=== PATIENT | female | born 1960 | race American Indian/Alaskan Native ===

== ENCOUNTER 2018-06-05 14:15 | Inpatient (IN) | payer MEDICAID ==
[~2018-06-05] VITALS: Ht 152.4 cm; Wt 63.0 kg
[~2018-06-05 14:15] MED LIST: HYDR-4383 PO; LANTUS SUBCUT
[2018-06-05] MEDS ORDERED: vancomycin/NS 1 GM ADD-VANTAGE 250 ML IV ONE (15:30)
[2018-06-05] MEDS ORDERED: normal saline 1000ML IV soln IVB ONE (15:30)
[2018-06-05] MEDS ORDERED: ondansetron/PF 4mg/2ml inj IV ONE (15:35)
[2018-06-05] MEDS ORDERED: HYDROmorphone 1 mg/ml syringe IM ONE (15:35)
[2018-06-05 15:54] LABS: BASOPHILS # (AUTO) 0.1 X10'3 (0-0.2); BASOPHILS % (AUTO) 0.4 % (0-1); EOSINOPHILS # (AUTO) 0.1 X10'3 (0-0.9); EOSINOPHILS % (AUTO) 0.8 % (0-6); HEMATOCRIT 39.5 % (35.0-45.0); HEMOGLOBIN 13.4 g/dl (12.0-16.0); LYMPHOCYTES % (AUTO) 14.3 % (21-51); MEAN CORPUSCULAR VOLUME 88.4 FL (78-98); MEAN PLATELET VOLUME 8.5 FL (7.4-10.4); MONOCYTES # (AUTO) 0.6 X10'3 (0-0.9); MONOCYTES % (AUTO) 4.5 % (2-12); NEUTROPHILS # (AUTO) 11.4 X10'3 (1.8-7.7); PLATELET COUNT 322 X10'3 (140-440); RED BLOOD COUNT 4.47 X10'6 (4.20-5.60); RED CELL DISTRIBUTION WIDTH 14.3 % (11.5-14.5); WHITE BLOOD COUNT 14.2 X10'3 (4.5-11.0)
[2018-06-05 16:13] LABS: INR 0.9 INR; PARTIAL THROMBOPLASTIN TIME 28 SECONDS (22-32); PROTHROMBIN TIME 9.3 SECONDS (9.0-12.0)
[2018-06-05 16:14] LABS: ALANINE AMINOTRANSFERASE 17 U/L (12-78); ALBUMIN 2.9 G/DL (3.4-5.0); ALBUMIN/GLOBULIN RATIO 0.7 (1.1-1.5); ALKALINE PHOSPHATASE 130 IU/L (46-116); ANION GAP 8 (8-16); ASPARTATE AMINO TRANSFERASE 13 U/L (10-37); BILIRUBIN,TOTAL 0.3 MG/DL (0.1-1.0); BLOOD UREA NITROGEN 18 MG/DL (7-18); BUN/CREATININE RATIO 21.7 (6.6-38.0); CALCIUM 8.6 MG/DL (8.5-10.1); CHLORIDE 96 MMOL/L (99-107); CREATININE 0.83 MG/DL (0.40-0.90); GLUCOSE 389 MG/DL (70-104); MAGNESIUM 1.9 MG/DL (1.5-2.4); POTASSIUM 4.1 MMOL/L (3.5-5.1); SODIUM 130 MMOL/L (135-145); TOTAL CARBON DIOXIDE 26.1 MMOL/L (24-32); TOTAL PROTEIN 7.1 G/DL (6.4-8.2); eGFR 70 ML/MIN
[2018-06-05] MEDS ORDERED: insulin regular, human 10 units/0.1 ml syringe IV ONE (16:40)
[2018-06-05 18:05] LABS: CLARITY,URINE SLIGHTLY CLOUDY (Clear); COLOR,URINE YELLOW (Yellow); GLUCOSE, URINE >=1000 mg/dl (Neg); KETONES,URINE NEGATIVE (Neg); LEUKOCYTE ESTERASE ,URINE NEGATIVE (Neg); NITRITES, URINE NEGATIVE (Neg); OCCULT BLOOD,URINE NEGATIVE (Neg); PH,URINE 5.5 (4.8-8.0); PROTEIN,URINE NEGATIVE (Neg); UROBILINOGEN,URINE 0.2 E.U/dL (0.2-1.0)
[2018-06-05 18:07] LABS: UA COLLECTION TYPE CLN CATCH MIDSTREAM
[2018-06-05 18:10] LABS: URINE HCG NEGATIVE (NEG)
[2018-06-05] MEDS ORDERED: MESSAGE TO PHARMACY PO ONE (18:10)
[2018-06-05] MEDS ORDERED: magnesium 4gm in 100ml NS 100 ML IV PRN (18:10)
[2018-06-05] MEDS ORDERED: magnesium 1gm/100ml D5W IVPB 100 ML IV PRN (18:10)
[2018-06-05] MEDS ORDERED: acetaminophen 325mg tablet PO PRN ×2 (18:10)
[2018-06-05] MEDS ORDERED: dextrose 50%-water 50ml dispensing syringe IV PRN ×2 (18:10)
[2018-06-05] MEDS ORDERED: glucagon, human recombinant 1mg kit SUBCUT PRN (18:10)
[2018-06-05] MEDS ORDERED: dextrose ORAL solution 15 GM/59 ML bottle PO PRN ×2 (18:10)
[2018-06-05] MEDS ORDERED: morphine 2 MG/ML inj. syringe IV PRN (18:10)
[2018-06-05] MEDS ORDERED: potassium Cl 20 mEq SR tablet PO PRN ×2 (18:10)
[2018-06-05] MEDS ORDERED: potassium Cl 40MEQ/NS 500ml 500 ML IV PRN ×2 (18:10)
[2018-06-05] MEDS ORDERED: magnesium Cl slow-release 64mg tablet PO PRN (18:10)
[2018-06-05 18:13] LABS: BACTERIA,URINE 3+ /HPF (Neg); MUCUS STRANDS MODERATE /LPF (Neg); RBC,URINE NONE SEEN /HPF (0-2); SQUAMOUS EPITHELIAL CELL,UR NONE SEEN /LPF (FEW)
[2018-06-05] MEDS: normal saline 1000ml 1,000 ML IV SCH (18:46)
[2018-06-05 19:45] VITALS: BP 132/84
[2018-06-05] MEDS: vancomycin/NS 1 GM ADD-VANTAGE 250 ML IV SCH (20:08)
[2018-06-05] MEDS: heparin, porcine 5000 units/ml vial SQ SCH (20:10)
[2018-06-05] MEDS ORDERED: temazepam 15mg capsule PO PRN (21:00)
[2018-06-05] MEDS: insulin glargine (Lantus) pen - multi-dose SQ SCH (22:11)
[2018-06-06] VITALS: BP 132/84
[2018-06-06 05:34] LABS: BASOPHILS # (AUTO) 0.1 X10'3 (0-0.2); BASOPHILS % (AUTO) 0.7 % (0-1); EOSINOPHILS # (AUTO) 0.2 X10'3 (0-0.9); EOSINOPHILS % (AUTO) 2.6 % (0-6); HEMATOCRIT 32.4 % (35.0-45.0); LYMPHOCYTES % (AUTO) 20.8 % (21-51); MEAN CORPUSCULAR HEMOGLOBIN 30.3 PG (27.0-31.0); MEAN CORPUSCULAR VOLUME 88.9 FL (78-98); MEAN PLATELET VOLUME 9.1 FL (7.4-10.4); MONOCYTES # (AUTO) 0.7 X10'3 (0-0.9); NEUTROPHILS # (AUTO) 6.5 X10'3 (1.8-7.7); NEUTROPHILS % (AUTO) 68.9 % (42-75); PLATELET COUNT 270 X10'3 (140-440); RED BLOOD COUNT 3.64 X10'6 (4.20-5.60); RED CELL DISTRIBUTION WIDTH 14.3 % (11.5-14.5); WHITE BLOOD COUNT 9.4 X10'3 (4.5-11.0)
[2018-06-06] MEDS: normal saline 1000ml 1,000 ML IV SCH ×3 (05:55→19:21)
[2018-06-06 06:00] LABS: ALBUMIN 2.2 G/DL (3.4-5.0); ANION GAP 9 (8-16); BLOOD UREA NITROGEN 16 MG/DL (7-18); BUN/CREATININE RATIO 22.2 (6.6-38.0); CALCIUM 8.1 MG/DL (8.5-10.1); CHLORIDE 100 MMOL/L (99-107); CREATININE 0.72 MG/DL (0.40-0.90); GLUCOSE 253 MG/DL (70-104); MAGNESIUM 1.7 MG/DL (1.5-2.4); POTASSIUM 4.1 MMOL/L (3.5-5.1); SODIUM 133 MMOL/L (135-145); TOTAL CARBON DIOXIDE 24.4 MMOL/L (24-32); eGFR 83 ML/MIN
[2018-06-06 06:50] VITALS: BP 109/63
[2018-06-06] MEDS: heparin, porcine 5000 units/ml vial SQ SCH ×2 (07:28→19:26)
[2018-06-06] MEDS: vancomycin/NS 1 GM ADD-VANTAGE 250 ML IV SCH ×2 (07:29→19:22)
[2018-06-06] MEDS: HYDROcodone/acetaminophen 5mg/325mg tablet PO PRN ×2 (07:45→13:57)
[2018-06-06] MEDS: K and/or MAG REPLACEMENT MC SCH (08:00)
[2018-06-06] MEDS ORDERED: diph,pertuss (acell), tet (DTaP-PEDs)/PF 0.5ml syringe IMVAC ONE (11:35)
[2018-06-06 11:44] VITALS: BP 116/69
[2018-06-06] MEDS ORDERED: TETanus/Pertussis (Acell)/Diphther VAC/PF (Tdap-Adult) 0.5ml syringe IMVAC ONE (12:15)
[2018-06-06] MEDS: insulin Lispro (HumaLOG) vial - multi-dose SQ SCH ×2 (13:00→18:41)
[2018-06-06] MEDS: ondansetron/PF 4mg/2ml inj IV PRN (16:52)
[2018-06-06 20:00] VITALS: BP 151/74
[2018-06-06] MEDS: insulin glargine (Lantus) pen - multi-dose SQ SCH (21:33)
[2018-06-07] VITALS: BP 127/71
[2018-06-07] MEDS: HYDROcodone/acetaminophen 5mg/325mg tablet PO PRN ×3 (00:29→13:05)
[2018-06-07] MEDS: ondansetron/PF 4mg/2ml inj IV PRN (03:15)
[2018-06-07] MEDS ORDERED: VANCOMYCIN LEVEL IV ONE (06:30)
[2018-06-07] MEDS: heparin, porcine 5000 units/ml vial SQ SCH ×2 (07:22→19:27)
[2018-06-07] MEDS: vancomycin/NS 1 GM ADD-VANTAGE 250 ML IV SCH (07:23)
[2018-06-07 07:27] VITALS: BP 114/63
[2018-06-07] MEDS: normal saline 1000ml 1,000 ML IV SCH ×2 (07:35→22:54)
[2018-06-07 07:36] LABS: BASOPHILS # (AUTO) 0.1 X10'3 (0-0.2); BASOPHILS % (AUTO) 1.9 % (0-1); EOSINOPHILS # (AUTO) 0.3 X10'3 (0-0.9); EOSINOPHILS % (AUTO) 4.3 % (0-6); LYMPHOCYTES # (AUTO) 1.9 X10'3 (1.1-4.8); MEAN CORPUSCULAR HGB CONC 33.4 % (33.0-36.5); MEAN CORPUSCULAR VOLUME 89.7 FL (78-98); MEAN PLATELET VOLUME 9.1 FL (7.4-10.4); MONOCYTES # (AUTO) 0.5 X10'3 (0-0.9); MONOCYTES % (AUTO) 6.5 % (2-12); NEUTROPHILS # (AUTO) 4.8 X10'3 (1.8-7.7); NEUTROPHILS % (AUTO) 62.3 % (42-75); PLATELET COUNT 292 X10'3 (140-440); RED BLOOD COUNT 3.68 X10'6 (4.20-5.60); RED CELL DISTRIBUTION WIDTH 14.2 % (11.5-14.5); WHITE BLOOD COUNT 7.7 X10'3 (4.5-11.0)
[2018-06-07 07:51] LABS: ALBUMIN 2.2 G/DL (3.4-5.0); ANION GAP 7 (8-16); BLOOD UREA NITROGEN 13 MG/DL (7-18); BUN/CREATININE RATIO 17.8 (6.6-38.0); CALCIUM 8.3 MG/DL (8.5-10.1); CHLORIDE 102 MMOL/L (99-107); CREATININE 0.73 MG/DL (0.40-0.90); GLUCOSE 191 MG/DL (70-104); MAGNESIUM 1.7 MG/DL (1.5-2.4); POTASSIUM 3.6 MMOL/L (3.5-5.1); SODIUM 137 MMOL/L (135-145); TOTAL CARBON DIOXIDE 27.9 MMOL/L (24-32); VANCOMYCIN,TROUGH 10.6 UG/ML (6.0-14.0); eGFR 81 ML/MIN
[2018-06-07] MEDS: K and/or MAG REPLACEMENT MC SCH (08:00)
[2018-06-07] MEDS: lactobacillus rhamnosus 10,000 MMU CELLS/CAPSULE PO SCH ×2 (08:22→19:26)
[2018-06-07] MEDS: insulin Lispro (HumaLOG) vial - multi-dose SQ SCH ×3 (08:25→19:25)
[2018-06-07 11:45] VITALS: BP 102/62
[2018-06-07] MEDS ORDERED: nicotine 14mg patch - 24hr TD ONE (16:55)
[2018-06-07 19:00] VITALS: BP 129/74
[2018-06-07] MEDS: vancomycin inj 1,250 MG in normal saline 250ml IV soln 250 ML IV SCH (19:18)
[2018-06-07] MEDS ORDERED: dextrose 5%-normal saline 1,000 ML IV SCH (23:25)
[2018-06-07] MEDS ORDERED: dextrose 50%-water 50ml dispensing syringe IV ONE (23:25)
[2018-06-07] MEDS ORDERED: dextrose 5%-normal saline 1,000 ML IV PRN (23:35)
[2018-06-08] VITALS: BP 133/64
[2018-06-08] MEDS: HYDROcodone/acetaminophen 5mg/325mg tablet PO PRN (02:05)
[2018-06-08 05:17] LABS: BASOPHILS # (AUTO) 0.1 X10'3 (0-0.2); BASOPHILS % (AUTO) 1.2 % (0-1); EOSINOPHILS # (AUTO) 0.2 X10'3 (0-0.9); EOSINOPHILS % (AUTO) 1.7 % (0-6); HEMATOCRIT 34.1 % (35.0-45.0); HEMOGLOBIN 11.6 g/dl (12.0-16.0); LYMPHOCYTES # (AUTO) 2.2 X10'3 (1.1-4.8); LYMPHOCYTES % (AUTO) 24.7 % (21-51); MEAN CORPUSCULAR HEMOGLOBIN 30.2 PG (27.0-31.0); MEAN CORPUSCULAR HGB CONC 33.9 % (33.0-36.5); MEAN PLATELET VOLUME 9.4 FL (7.4-10.4); MONOCYTES # (AUTO) 0.4 X10'3 (0-0.9); MONOCYTES % (AUTO) 4.5 % (2-12); NEUTROPHILS # (AUTO) 6.1 X10'3 (1.8-7.7); NEUTROPHILS % (AUTO) 67.9 % (42-75); PLATELET COUNT 319 X10'3 (140-440); RED BLOOD COUNT 3.83 X10'6 (4.20-5.60); RED CELL DISTRIBUTION WIDTH 14.4 % (11.5-14.5)
[2018-06-08 05:26] LABS: ALBUMIN 2.3 G/DL (3.4-5.0); ANION GAP 8 (8-16); BLOOD UREA NITROGEN 12 MG/DL (7-18); CALCIUM 8.4 MG/DL (8.5-10.1); CHLORIDE 100 MMOL/L (99-107); GLUCOSE 195 MG/DL (70-104); MAGNESIUM 1.8 MG/DL (1.5-2.4); POTASSIUM 3.6 MMOL/L (3.5-5.1); SODIUM 135 MMOL/L (135-145); TOTAL CARBON DIOXIDE 27.5 MMOL/L (24-32); eGFR > 90 ML/MIN
[2018-06-08 07:00] VITALS: BP 134/68
[2018-06-08] MEDS: normal saline 1000ml 1,000 ML IV SCH (07:10)
[2018-06-08] MEDS: vancomycin inj 1,250 MG in normal saline 250ml IV soln 250 ML IV SCH (07:17)
[2018-06-08] MEDS: lactobacillus rhamnosus 10,000 MMU CELLS/CAPSULE PO SCH (07:17)
[2018-06-08] MEDS: heparin, porcine 5000 units/ml vial SQ SCH (07:17)
[2018-06-08] MEDS: K and/or MAG REPLACEMENT MC SCH (08:00)
[2018-06-08] MEDS ORDERED: nicotine 14mg patch - 24hr TD SCH (08:00)
[2018-06-08 11:00] VITALS: BP 144/57
[2018-06-08] MEDS ORDERED: SULF1TAB49 PO (11:43)
[2018-06-08] MEDS ORDERED: NICO-631 TD (11:43)
[2018-06-08] MEDS: insulin Lispro (HumaLOG) vial - multi-dose SQ SCH (13:14)
[2018-06-09] MEDS ORDERED: VANCOMYCIN LEVEL IV ONE (06:30)
== END 2018-06-08 14:10 | disposition home or self-care (01) | DRG 383 ==
LOC: ER 14:16 → ED HOLD 18:10 → EDBEDREQ 18:58 → SUR 3N 19:40
PROVIDERS: ADMIT Internal Medicine; ATTEND Family Medicine
DX: L03.115 Cellulitis of right lower limb (principal); E11.40 Type 2 diabetes mellitus with diabetic neuropathy, unspecified; E11.65 Type 2 diabetes mellitus with hyperglycemia; E87.1 Hypo-osmolality and hyponatremia; F12.90 Cannabis use, unspecified, uncomplicated; F17.200 Nicotine dependence, unspecified, uncomplicated; B95.62 Methicillin resistant Staphylococcus aureus infection as the cause of diseases classified elsewhere; Z79.899 Other long term (current) drug therapy; Z88.6 Allergy status to analgesic agent; Z91.041 Radiographic dye allergy status; Z90.49 Acquired absence of other specified parts of digestive tract; Z79.4 Long term (current) use of insulin; Z98.51 Tubal ligation status
CPT/HCPCS: 36415; 71045; 73630; 80048; 80053; 80202; 81001; 81025; 82948; 83036; 83605; 83735; 84145; 85025; 85610; 85730; 87040; 87070; 87077; 87088; 87186; 90715; 93005; 96365; 96372; 96375; 97110; 97116; 97162; 97530; 99285; G0378; J1170; J1644; J1815; J2405; J3370; J7030; J7042

== ENCOUNTER 2018-11-02 13:34 | Emergency (ER) | payer MEDICAID ==
[~2018-11-02] VITALS: Ht 152.4 cm; Wt 63.0 kg
[~2018-11-02 13:34] MED LIST changes: -HYDR-4383 PO; +NICO-631 TD
[2018-11-02] MEDS ORDERED: cephalexin 500mg capsule PO ONE (14:00)
[2018-11-02] MEDS ORDERED: doxycycline inj 100 MG in normal saline 100ml IV soln 100 ML IV ONE (14:00)
[2018-11-02] MEDS ORDERED: ondansetron/PF 4mg/2ml inj IV ONE (14:00)
[2018-11-02] MEDS ORDERED: normal saline 1000ML IV soln IV ONE (14:00)
--- NOTE | 2018-11-02 14:15 | NUR ---
XRAY AT BEDSIDE. NS INFUSING.
[2018-11-02 14:34] LABS: BASOPHILS # (AUTO) 0.1 X10'3 (0-0.2); BASOPHILS % (AUTO) 0.6 % (0-1); EOSINOPHILS # (AUTO) 0.1 X10'3 (0-0.9); EOSINOPHILS % (AUTO) 0.3 % (0-6); HEMATOCRIT 42.5 % (35.0-45.0); HEMOGLOBIN 14.5 g/dl (12.0-16.0); LYMPHOCYTES % (AUTO) 6.4 % (21-51); MEAN CORPUSCULAR HEMOGLOBIN 29.9 PG (27.0-31.0); MEAN CORPUSCULAR VOLUME 87.8 FL (78-98); MEAN PLATELET VOLUME 9.3 FL (7.4-10.4); MONOCYTES # (AUTO) 1.1 X10'3 (0-0.9); MONOCYTES % (AUTO) 6.7 % (2-12); NEUTROPHILS # (AUTO) 14.1 X10'3 (1.8-7.7); PLATELET COUNT 311 X10'3 (140-440); RED BLOOD COUNT 4.84 X10'6 (4.20-5.60); WHITE BLOOD COUNT 16.3 X10'3 (4.5-11.0)
[2018-11-02 14:40] LABS: PARTIAL THROMBOPLASTIN TIME 29 SECONDS (22-32); PROTHROMBIN TIME 9.7 SECONDS (9.0-12.0)
[2018-11-02 14:42] LABS: ALANINE AMINOTRANSFERASE 28 U/L (12-78); ALBUMIN 3.2 G/DL (3.4-5.0); ALBUMIN/GLOBULIN RATIO 0.7 (1.1-1.5); ALKALINE PHOSPHATASE 143 IU/L (46-116); ANION GAP 13 (8-16); ASPARTATE AMINO TRANSFERASE 19 U/L (10-37); BILIRUBIN,TOTAL 0.4 MG/DL (0.1-1.0); BLOOD UREA NITROGEN 20 MG/DL (7-18); CALCIUM 9.5 MG/DL (8.5-10.1); CHLORIDE 94 MMOL/L (99-107); CREATININE 0.91 MG/DL (0.40-0.90); GLUCOSE 354 MG/DL (70-104); MAGNESIUM 2.1 MG/DL (1.5-2.4); POTASSIUM 4.1 MMOL/L (3.5-5.1); SODIUM 130 MMOL/L (135-145); TOTAL CARBON DIOXIDE 23.5 MMOL/L (24-32); TOTAL PROTEIN 8.1 G/DL (6.4-8.2); eGFR 63 ML/MIN
[2018-11-02 15:10] LABS: PLATELET ESTIMATE NORMAL; TOTAL CELLS COUNTED 100
[2018-11-02] MEDS ORDERED: CEPH250T PO (15:43)
[2018-11-02] MEDS ORDERED: DOXY100C43 PO (15:43)
[2018-11-02] MEDS ORDERED: ONDA8TAB6 PO (15:45)
[2018-11-02] MEDS ORDERED: HYDROcodone/acetaminophen 5mg/325mg tablet PO ONE (15:45)
[2018-11-02] MEDS ORDERED: bacitracin 15gm ointment TP ONE (15:50)
[2018-11-02 17:22] VITALS: BP 120/69
== END 2018-11-02 17:23 | disposition home or self-care (01) ==
LOC: ER 13:34
DX: L03.115 Cellulitis of right lower limb (principal); E11.9 Type 2 diabetes mellitus without complications; F12.90 Cannabis use, unspecified, uncomplicated; F15.90 Other stimulant use, unspecified, uncomplicated; Z98.890 Other specified postprocedural states; Z98.51 Tubal ligation status; Z88.6 Allergy status to analgesic agent; Z88.8 Allergy status to other drugs, medicaments and biological substances; Z79.4 Long term (current) use of insulin; Z79.899 Other long term (current) drug therapy
CPT/HCPCS: 36415; 71045; 73630; 80053; 82948; 83605; 83735; 84145; 85025; 85610; 85730; 87040; 93005; 96365; 96366; 96375; 99284; J2405; J7030; J3490

== ENCOUNTER 2018-11-13 11:45 | Inpatient (IN) | payer MEDICAID ==
[~2018-11-13] VITALS: Ht 152.4 cm; Wt 61.4 kg
[~2018-11-13 11:45] MED LIST changes: +CEPH250T PO; +DOXY100C43 PO; +ONDA8TAB6 PO
[2018-11-13 12:36] LABS: EOSINOPHILS # (AUTO) 0.1 X10'3 (0-0.9); HEMOGLOBIN 11.5 g/dl (12.0-16.0); LYMPHOCYTES % (AUTO) 10.7 % (21-51)
[2018-11-13 12:38] LABS: BASOPHILS # (AUTO) 0.1 X10'3 (0-0.2); BASOPHILS % (AUTO) 0.7 % (0-1); EOSINOPHILS % (AUTO) 0.6 % (0-6); HEMATOCRIT 34.3 % (35.0-45.0); LYMPHOCYTES # (AUTO) 2.1 X10'3 (1.1-4.8); MEAN CORPUSCULAR HEMOGLOBIN 29.2 PG (27.0-31.0); MEAN CORPUSCULAR HGB CONC 33.4 g/dL (33.0-36.5); MEAN CORPUSCULAR VOLUME 87.3 FL (78-98); MEAN PLATELET VOLUME 8.1 FL (7.4-10.4); MONOCYTES # (AUTO) 1.1 X10'3 (0-0.9); MONOCYTES % (AUTO) 5.5 % (2-12); NEUTROPHILS # (AUTO) 16.3 X10'3 (1.8-7.7); NEUTROPHILS % (AUTO) 82.5 % (42-75); PLATELET COUNT 641 X10'3 (140-440); RED BLOOD COUNT 3.93 X10'6 (4.20-5.60); RED CELL DISTRIBUTION WIDTH 14.2 % (11.5-14.5); WHITE BLOOD COUNT 19.7 X10'3 (4.5-11.0)
[2018-11-13] MEDS ORDERED: piperacillin/tazo 3.375gm/50ml 50 ML IV STA (12:50)
[2018-11-13] MEDS ORDERED: normal saline 1000ml 1,000 ML IV ONE (12:50)
[2018-11-13 12:55] LABS: ALANINE AMINOTRANSFERASE 22 U/L (12-78); ALBUMIN 2.4 G/DL (3.4-5.0); ALBUMIN/GLOBULIN RATIO 0.4 (1.1-1.5); ALKALINE PHOSPHATASE 161 IU/L (46-116); ANION GAP 6 (8-16); ASPARTATE AMINO TRANSFERASE 12 U/L (10-37); BILIRUBIN,TOTAL 0.4 MG/DL (0.1-1.0); BLOOD UREA NITROGEN 23 MG/DL (7-18); BUN/CREATININE RATIO 26.4 (6.6-38.0); CALCIUM 9.3 MG/DL (8.5-10.1); CHLORIDE 94 MMOL/L (99-107); CREATININE 0.87 MG/DL (0.40-0.90); GLUCOSE 406 MG/DL (70-104); SODIUM 127 MMOL/L (135-145); TOTAL CARBON DIOXIDE 26.6 MMOL/L (24-32); TOTAL PROTEIN 7.8 G/DL (6.4-8.2); eGFR 66 ML/MIN
[2018-11-13 12:56] LABS: TOTAL CELLS COUNTED 100
[2018-11-13 12:57] LABS: ANISOCYTOSIS 1+; PLATELET ESTIMATE INCREASED
[2018-11-13 13:02] LABS: CLARITY,URINE CLEAR (Clear); COLOR,URINE YELLOW (Yellow); GLUCOSE, URINE >=1000 mg/dl (Neg); KETONES,URINE NEGATIVE (Neg); LEUKOCYTE ESTERASE ,URINE NEGATIVE (Neg); NITRITES, URINE NEGATIVE (Neg); OCCULT BLOOD,URINE TRACE-INTACT (Neg); PROTEIN,URINE NEGATIVE (Neg); UROBILINOGEN,URINE 0.2 E.U/dL (0.2-1.0)
[2018-11-13 13:03] LABS: UA COLLECTION TYPE CLN CATCH MIDSTREAM
[2018-11-13 13:07] LABS: C-REACTIVE PROTEIN 27.48 MG/DL (0.0-0.5)
[2018-11-13 13:09] LABS: BACTERIA,URINE FEW /HPF (Neg); MUCUS STRANDS NONE SEEN /LPF (Neg); RBC,URINE 0-2 /HPF (0-2); SQUAMOUS EPITHELIAL CELL,UR MODERATE /LPF (FEW); WBC,URINE 0-4 /HPF (0-4)
[2018-11-13] MEDS ORDERED: vancomycin/NS 1 GM ADD-VANTAGE 250 ML IV ONE (13:30)
[2018-11-13] MEDS ORDERED: acetaminophen 325mg tablet PO PRN ×2 (13:40)
[2018-11-13] MEDS ORDERED: magnesium 2GM in 50ml NS 50 ML IV PRN (13:40)
[2018-11-13] MEDS ORDERED: magnesium Cl slow-release 64mg tablet PO PRN (13:40)
[2018-11-13] MEDS ORDERED: potassium Cl 20 mEq SR tablet PO PRN ×2 (13:40)
[2018-11-13] MEDS ORDERED: potassium Cl 40MEQ/NS 500ml 500 ML IV PRN ×2 (13:40)
[2018-11-13] MEDS ORDERED: HYDROcodone/acetaminophen 5mg/325mg tablet PO PRN (13:40)
[2018-11-13] MEDS ORDERED: morphine 2 MG/ML inj. syringe IV PRN (13:40)
[2018-11-13] MEDS ORDERED: mag hydrox/Alum hydrox/simeth 30ml oral suspension PO PRN (13:40)
[2018-11-13] MEDS ORDERED: magnesium 4gm in 100ml NS 100 ML IV PRN (13:40)
[2018-11-13] MEDS ORDERED: INSU100I31 SQ (13:58)
[2018-11-13] MEDS ORDERED: DOXY-257 PO (13:58)
[2018-11-13] MEDS ORDERED: CEPH250C PO (13:58)
[2018-11-13] MEDS: normal saline 1000ml 1,000 ML IV SCH ×2 (14:17→23:43)
[2018-11-13] MEDS: ondansetron/PF 4mg/2ml inj IV PRN (14:50)
[2018-11-13] MEDS ORDERED: MESSAGE TO PHARMACY PO ONE (15:15)
[2018-11-13] MEDS ORDERED: glucagon, human recombinant 1mg kit SUBCUT PRN (15:15)
[2018-11-13] MEDS ORDERED: dextrose 50%-water 50ml dispensing syringe IV PRN ×2 (15:15)
[2018-11-13] MEDS ORDERED: dextrose ORAL solution 15 GM/59 ML bottle PO PRN ×2 (15:15)
[2018-11-13 16:00] VITALS: BP 115/69
--- NOTE | 2018-11-13 16:00 | NUR ---
Patient in room ORTHO 4007. I have received report from ALAN ESTRADA and had the opportunity to ask questions and assume patient care.
[2018-11-13 18:00] VITALS: BP 120/70
--- NOTE | 2018-11-13 18:45 | NUR ---
Problems reprioritized. Patient report given, questions answered & plan of care reviewed with VALENTINA ESTRADA.
--- NOTE | 2018-11-13 19:00 | NUR ---
Patient in room ORTHO 4007. I have received report from Mily Lambert RN and had the opportunity to ask questions and assume patient care.
[2018-11-13] MEDS: heparin, porcine 5000 units/ml vial SQ SCH (19:44)
[2018-11-13] MEDS: HYDROcodone/acetaminophen 10/325mg tab PO PRN (19:44)
[2018-11-13] MEDS: insulin Lispro (HumaLOG) vial - multi-dose SQ SCH ×2 (19:46→22:44)
[2018-11-13] MEDS ORDERED: pneumococcal 23-VAL P-sac vacc 25 mcg/0.5ml vial IMVAC ONE (20:30)
[2018-11-13] MEDS ORDERED: temazepam 15mg capsule PO PRN (21:00)
[2018-11-13 22:00] VITALS: BP 113/68
[2018-11-13] MEDS: insulin glargine (Lantus) pen - multi-dose SQ SCH (22:45)
[2018-11-13] MEDS: piperacillin/tazo 3.375gm/50ml 50 ML IV SCH (22:46)
[2018-11-13] MEDS: morphine 2 MG/ML inj. syringe IV PRN (22:56)
[2018-11-14] VITALS (19 sets, daily range): BP systolic 79–138; BP diastolic 49–80
[2018-11-14] MEDS: HYDROcodone/acetaminophen 10/325mg tab PO PRN ×5 (01:07→23:12)
[2018-11-14] MEDS: vancomycin/NS 1 GM ADD-VANTAGE 250 ML IV SCH ×2 (02:09→16:00)
[2018-11-14] MEDS: piperacillin/tazo 3.375gm/50ml 50 ML IV SCH ×3 (05:29→21:00)
--- NOTE | 2018-11-14 06:41 | NUR ---
Patient in room ORTHO 4007. I have received report from Darryl ESTRADA and had the opportunity to ask questions and assume patient care.
[2018-11-14] MEDS: pantoprazole 40mg Tablet.DR PO SCH (07:32)
[2018-11-14] MEDS: nicotine 14mg patch - 24hr TD SCH (08:00)
[2018-11-14] MEDS: K and/or MAG REPLACEMENT MC SCH (08:00)
[2018-11-14] MEDS: heparin, porcine 5000 units/ml vial SQ SCH ×2 (08:00→21:01)
[2018-11-14 08:02] LABS: BASOPHILS # (AUTO) 0.2 X10'3 (0-0.2); BASOPHILS % (AUTO) 1.2 % (0-1); EOSINOPHILS # (AUTO) 0.1 X10'3 (0-0.9); HEMOGLOBIN 10.5 g/dl (12.0-16.0); LYMPHOCYTES # (AUTO) 1.6 X10'3 (1.1-4.8); LYMPHOCYTES % (AUTO) 12.6 % (21-51); MEAN CORPUSCULAR HEMOGLOBIN 29.2 PG (27.0-31.0); MEAN CORPUSCULAR HGB CONC 33.7 g/dL (33.0-36.5); MEAN CORPUSCULAR VOLUME 86.6 FL (78-98); MEAN PLATELET VOLUME 8.1 FL (7.4-10.4); MONOCYTES % (AUTO) 7.5 % (2-12); NEUTROPHILS # (AUTO) 10.1 X10'3 (1.8-7.7); NEUTROPHILS % (AUTO) 77.7 % (42-75); PLATELET COUNT 599 X10'3 (140-440); RED BLOOD COUNT 3.58 X10'6 (4.20-5.60); RED CELL DISTRIBUTION WIDTH 14.1 % (11.5-14.5)
[2018-11-14 08:15] LABS: ALANINE AMINOTRANSFERASE 105 U/L (12-78); ALBUMIN/GLOBULIN RATIO 0.4 (1.1-1.5); ALKALINE PHOSPHATASE 338 IU/L (46-116); ANION GAP 8 (8-16); ASPARTATE AMINO TRANSFERASE 106 U/L (10-37); BILIRUBIN,TOTAL 0.3 MG/DL (0.1-1.0); BLOOD UREA NITROGEN 17 MG/DL (7-18); BUN/CREATININE RATIO 27.9 (6.6-38.0); CALCIUM 8.5 MG/DL (8.5-10.1); CHLORIDE 100 MMOL/L (99-107); CREATININE 0.61 MG/DL (0.40-0.90); GLUCOSE 165 MG/DL (70-104); MAGNESIUM 1.9 MG/DL (1.5-2.4); POTASSIUM 4.2 MMOL/L (3.5-5.1); SODIUM 133 MMOL/L (135-145); TOTAL CARBON DIOXIDE 25.4 MMOL/L (24-32); TOTAL PROTEIN 6.7 G/DL (6.4-8.2); eGFR > 90 ML/MIN
[2018-11-14] MEDS: insulin Lispro (HumaLOG) vial - multi-dose SQ SCH (08:32)
[2018-11-14] MEDS ORDERED: ringers solution, lacted 1,000 ML IV SCH (09:39)
[2018-11-14] MEDS ORDERED: ondansetron/PF 4mg/2ml inj IV PRN (09:40)
[2018-11-14] MEDS ORDERED: fentaNYL/PF 50MCG/1 ML 2ML syringe IV PRN ×2 (09:40)
[2018-11-14] MEDS ORDERED: hydrALAZINE 20mg/ml inj. IV PRN (09:40)
[2018-11-14] MEDS ORDERED: labetalol 20mg/4ml (5mg/ml) syringe IV PRN (09:40)
[2018-11-14] MEDS ORDERED: morphine 4 MG/ML inj SYRINge IV PRN ×2 (09:40)
--- NOTE | 2018-11-14 10:48 | NUR ---
DM consult: Pt with A1c 12.0. Pt previously admitted and given written and verbal DM ed with referral to outpatient DM class and RD contact information on 06/06/18 with A1c 10.1. Pt currently in surgery holding room pending rt foot amputation, pt will need f/u DM ed and protein education s/p surgery once alert and oriented. Per H&P pt takes insulin however does not see a PCP or follow a DM diet and pt reports being aware of her DM not being under control. Pt previously on a CHO controlled diet with documented PO intake 100% however now NPO for surgery, LBM 11/13. Will continue to follow. Recommendations: 1) Advance to CHO controlled diet as medically indicated 2) Monitor need for ONS/additional protein with diet advancement post-op 3) DM and protein ed prior to d/c 4) Wt per rx Addendum: 11/14/18 at [address] Amended: Links added.
[2018-11-14] MEDS ORDERED: sevoflurane 250ml liquid IH ONE (10:55)
[2018-11-14] MEDS ORDERED: fentaNYL /PF 50mcg/ml 5ml ampule ONE (11:00)
[2018-11-14] MEDS ORDERED: midazolam 2 mg/2 ml injection ONE (11:00)
--- NOTE | 2018-11-14 11:58 | NUR ---
Received from OR via , accompanied by Anesthesiologist DR HUMMEL and report given by Anesthesiolgist. PT IS SLEEPING WITH ORAL AIRWAY IN PLACE, VSS, NOT RESPONDING TO VOICE OR MOVING EXT AT THIS TIME, RIGHT FOOT CD WITH XEROFORM, KERLIS, AND CATY, PIV RIGHT AC 20G WITH LR 100ML/HR, SCD ON LEFT, ACCUCHECK 101.
--- NOTE | 2018-11-14 12:12 | NUR ---
PT WOKE UP AND ORAL AIRWAY REMOVED, MOVING EXT X 4, NO C/O PAIN.
--- NOTE | 2018-11-14 12:40 | NUR ---
Report called to receiving nurse. Transferred via BED Belongings . Special Issues communicated to receiving nurse MARTI STUDENT NURSE. PT IS AWAKE, ALERT, MOVES EXT X 4, REPOSITIONS SELF INDEP'LY IN BED, SKIN WARM AND DRY, DRESSING ON RIGHT LE CD, PIV PATENT, VSS, MEETS CRITERIA FOR DISCHARGE.
[2018-11-14] MEDS: morphine 2 MG/ML inj. syringe IV PRN ×2 (13:10→21:04)
[2018-11-14] MEDS: ondansetron/PF 4mg/2ml inj IV PRN ×2 (13:18→19:04)
[2018-11-14] MEDS ORDERED: metoclopramide 10mg tablet PO PRN (14:55)
--- NOTE | 2018-11-14 15:30 | NUR ---
Dr. Guzman called increase morphine and norco to q3 hrs instead of q4 same dose
[2018-11-14] MEDS ORDERED: morphine 2 MG/ML inj. syringe IV PRN (15:35)
[2018-11-14] MEDS ORDERED: HYDROcodone/acetaminophen 5mg/325mg tablet PO PRN (15:35)
[2018-11-14] MEDS: normal saline 1000ml 1,000 ML IV SCH ×2 (16:00→19:37)
--- NOTE | 2018-11-14 19:09 | NUR ---
Patient report given to Darryl
[2018-11-14] MEDS: lactobacillus rhamnosus 10,000 MMU CELLS/CAPSULE PO SCH (20:00)
[2018-11-14] MEDS: insulin glargine (Lantus) pen - multi-dose SQ SCH (20:58)
--- NOTE | 2018-11-14 21:00 | NUR ---
Pt is still nauseated after Zofran, called Dr. Box and got an order for IV compazine. nausea seemed to subside afterward.
[2018-11-14] MEDS: proCHLORperazine 10 MG/2 ml inj IV PRN (21:09)
[2018-11-15] MEDS: morphine 2 MG/ML inj. syringe IV PRN ×6 (00:20→22:12)
[2018-11-15] MEDS ORDERED: HYDROcodone/acetaminophen 10/325mg tab PO ONE (00:45)
--- NOTE | 2018-11-15 01:00 | NUR ---
pt c/o pain After morphine and norco was given. called Dr. Box and received an order for an extra Ribera 10.
[2018-11-15] MEDS ORDERED: VANCOMYCIN LEVEL IV ONE (01:30)
--- NOTE | 2018-11-15 01:31 | NUR ---
Patient in room ORTHO 4007. I have received report from Renee ESTRADA and had the opportunity to ask questions and assume patient care. Addendum: 11/15/18 at 0140 by Benjamin Jackson RN Received report at 0590 on 11/14
[2018-11-15 02:00] VITALS: BP 122/66
[2018-11-15] MEDS: vancomycin/NS 1 GM ADD-VANTAGE 250 ML IV SCH (02:33)
[2018-11-15 02:51] LABS: ALANINE AMINOTRANSFERASE 107 U/L (12-78); ALBUMIN 1.8 G/DL (3.4-5.0); ALBUMIN/GLOBULIN RATIO 0.4 (1.1-1.5); ALKALINE PHOSPHATASE 302 IU/L (46-116); ANION GAP 7 (8-16); ASPARTATE AMINO TRANSFERASE 80 U/L (10-37); BILIRUBIN,TOTAL 0.2 MG/DL (0.1-1.0); BLOOD UREA NITROGEN 10 MG/DL (7-18); BUN/CREATININE RATIO 14.7 (6.6-38.0); CALCIUM 8.3 MG/DL (8.5-10.1); CHLORIDE 100 MMOL/L (99-107); CREATININE 0.68 MG/DL (0.40-0.90); EOSINOPHILS # (AUTO) 0.1 X10'3 (0-0.9); GLUCOSE 260 MG/DL (70-104); HEMOGLOBIN 9.9 g/dl (12.0-16.0); LYMPHOCYTES # (AUTO) 1.8 X10'3 (1.1-4.8); MAGNESIUM 1.9 MG/DL (1.5-2.4); POTASSIUM 3.8 MMOL/L (3.5-5.1); RED CELL DISTRIBUTION WIDTH 14.1 % (11.5-14.5); SODIUM 135 MMOL/L (135-145); TOTAL CARBON DIOXIDE 27.7 MMOL/L (24-32); TOTAL PROTEIN 6.3 G/DL (6.4-8.2); eGFR 88 ML/MIN
[2018-11-15 02:53] LABS: BASOPHILS # (AUTO) 0.1 X10'3 (0-0.2); BASOPHILS % (AUTO) 0.9 % (0-1); EOSINOPHILS % (AUTO) 0.7 % (0-6); HEMATOCRIT 29.6 % (35.0-45.0); LYMPHOCYTES % (AUTO) 11.4 % (21-51); MEAN CORPUSCULAR HEMOGLOBIN 28.9 PG (27.0-31.0); MEAN CORPUSCULAR HGB CONC 33.4 g/dL (33.0-36.5); MEAN CORPUSCULAR VOLUME 86.6 FL (78-98); MEAN PLATELET VOLUME 8.3 FL (7.4-10.4); MONOCYTES % (AUTO) 6.1 % (2-12); NEUTROPHILS # (AUTO) 13.1 X10'3 (1.8-7.7); NEUTROPHILS % (AUTO) 80.9 % (42-75); PLATELET COUNT 609 X10'3 (140-440); RED BLOOD COUNT 3.42 X10'6 (4.20-5.60); WHITE BLOOD COUNT 16.2 X10'3 (4.5-11.0)
[2018-11-15] MEDS: piperacillin/tazo 3.375gm/50ml 50 ML IV SCH ×3 (05:07→21:50)
[2018-11-15 06:00] VITALS: BP 92/60
--- NOTE | 2018-11-15 06:09 | NUR ---
received report from gino decker
[2018-11-15 06:16] LABS: TOTAL CELLS COUNTED 100
[2018-11-15 06:17] LABS: PLATELET ESTIMATE INCREASED
[2018-11-15 06:59] LABS: VANCOMYCIN,TROUGH 6.8 UG/ML (6.0-14.0)
[2018-11-15] MEDS: nicotine 14mg patch - 24hr TD SCH (08:00)
[2018-11-15] MEDS: K and/or MAG REPLACEMENT MC SCH (08:00)
[2018-11-15] MEDS: pantoprazole 40mg Tablet.DR PO SCH (08:05)
[2018-11-15] MEDS: lactobacillus rhamnosus 10,000 MMU CELLS/CAPSULE PO SCH ×2 (08:05→21:50)
[2018-11-15] MEDS: HYDROcodone/acetaminophen 10/325mg tab PO PRN ×3 (08:06→15:14)
[2018-11-15] MEDS: heparin, porcine 5000 units/ml vial SQ SCH ×2 (08:08→21:50)
[2018-11-15] MEDS: normal saline 1000ml 1,000 ML IV SCH ×3 (08:10→16:41)
[2018-11-15] MEDS: insulin Lispro (HumaLOG) vial - multi-dose SQ SCH ×3 (08:50→18:51)
[2018-11-15 10:00] VITALS: BP 95/66
[2018-11-15] MEDS: proCHLORperazine 10 MG/2 ml inj IV PRN (10:40)
--- NOTE | 2018-11-15 12:38 | NUR ---
unable to scan zosyn into [employer], checked med w/charge nurse and called pharmacy to notify them, continue to monitor
--- NOTE | 2018-11-15 13:03 | NUR ---
F/U for DM consult: Pt seen at bedside states she doesn't see an MD or check BG levels d/t not having a glucometer however states she takes her insulin per rx. services account manager has been consulted d/t pt needing resources for DM management. Pt given thorough written and verbal protein and DM ed with encouragement to attend outpatient DM course with CDEs. RD contact information provided. Pt endorses a good appetite which is evident with documented 100% PO intake on CHO controlled diet. Pt denies difficulty chewing/swallowing or constipation/diarrhea. Pt agreeable to double protein TID to provide additional protein to meet wound healing needs. Will continue to follow. Recommendations: 1) Continue CHO controlled diet 2) Double protein TID 3) Monitor need for DM ed reinforcement 4) Wt per rx Addendum: 11/15/18 at [address] Amended: Links added.
[2018-11-15] MEDS: vancomycin inj 1,250 MG in NS 250ml IV soln IV SCH (13:42)
[2018-11-15 14:00] VITALS: BP 93/55
[2018-11-15] MEDS ORDERED: piperacillin/tazo 3.375gm/50ml 50 ML IV SCH (16:00)
[2018-11-15 18:00] VITALS: BP 96/60
--- NOTE | 2018-11-15 18:13 | NUR ---
GAVE REPORT TO NATALIE ASHBY
[2018-11-15] MEDS: insulin glargine (Lantus) pen - multi-dose SQ SCH (21:50)
[2018-11-15 22:00] VITALS: BP 103/58
[2018-11-16] MEDS: HYDROcodone/acetaminophen 10/325mg tab PO PRN ×4 (00:25→19:28)
[2018-11-16] MEDS: morphine 2 MG/ML inj. syringe IV PRN ×3 (01:50→22:30)
[2018-11-16] MEDS: vancomycin inj 1,250 MG in NS 250ml IV soln IV SCH ×2 (01:51→13:31)
[2018-11-16] MEDS: piperacillin/tazo 3.375gm/50ml 50 ML IV SCH ×3 (05:58→20:35)
[2018-11-16 06:24] LABS: BASOPHILS # (AUTO) 0.1 X10'3 (0-0.2); BASOPHILS % (AUTO) 0.5 % (0-1); EOSINOPHILS # (AUTO) 0.1 X10'3 (0-0.9); HEMATOCRIT 27.3 % (35.0-45.0); HEMOGLOBIN 9.5 g/dl (12.0-16.0); LYMPHOCYTES % (AUTO) 16.1 % (21-51); MEAN CORPUSCULAR HEMOGLOBIN 30.1 PG (27.0-31.0); MEAN CORPUSCULAR HGB CONC 34.9 g/dL (33.0-36.5); MEAN CORPUSCULAR VOLUME 86.2 FL (78-98); MEAN PLATELET VOLUME 8.2 FL (7.4-10.4); MONOCYTES # (AUTO) 0.9 X10'3 (0-0.9); MONOCYTES % (AUTO) 7.4 % (2-12); NEUTROPHILS # (AUTO) 9.5 X10'3 (1.8-7.7); PLATELET COUNT 599 X10'3 (140-440); RED BLOOD COUNT 3.17 X10'6 (4.20-5.60); RED CELL DISTRIBUTION WIDTH 14.2 % (11.5-14.5); WHITE BLOOD COUNT 12.6 X10'3 (4.5-11.0)
[2018-11-16 06:41] LABS: ALANINE AMINOTRANSFERASE 81 U/L (12-78); ALBUMIN 1.8 G/DL (3.4-5.0); ALBUMIN/GLOBULIN RATIO 0.4 (1.1-1.5); ALKALINE PHOSPHATASE 266 IU/L (46-116); ANION GAP 7 (8-16); ASPARTATE AMINO TRANSFERASE 53 U/L (10-37); BILIRUBIN,TOTAL 0.3 MG/DL (0.1-1.0); BLOOD UREA NITROGEN 9 MG/DL (7-18); BUN/CREATININE RATIO 14.8 (6.6-38.0); CALCIUM 8.1 MG/DL (8.5-10.1); CHLORIDE 103 MMOL/L (99-107); CREATININE 0.61 MG/DL (0.40-0.90); GLUCOSE 148 MG/DL (70-104); MAGNESIUM 1.9 MG/DL (1.5-2.4); POTASSIUM 3.7 MMOL/L (3.5-5.1); SODIUM 135 MMOL/L (135-145); TOTAL CARBON DIOXIDE 25.3 MMOL/L (24-32); TOTAL PROTEIN 6.2 G/DL (6.4-8.2); eGFR > 90 ML/MIN
[2018-11-16] MEDS: K and/or MAG REPLACEMENT MC SCH (07:36)
[2018-11-16] MEDS: lactobacillus rhamnosus 10,000 MMU CELLS/CAPSULE PO SCH ×2 (07:50→20:35)
[2018-11-16] MEDS: pantoprazole 40mg Tablet.DR PO SCH (07:50)
[2018-11-16] MEDS: heparin, porcine 5000 units/ml vial SQ SCH ×2 (07:50→20:37)
[2018-11-16] MEDS: nicotine 14mg patch - 24hr TD SCH (07:52)
[2018-11-16] MEDS: insulin Lispro (HumaLOG) vial - multi-dose SQ SCH ×2 (09:10→19:24)
[2018-11-16] MEDS: normal saline 1000ml 1,000 ML IV SCH (11:23)
--- NOTE | 2018-11-16 11:28 | NUR ---
Student Medication Administration:For this medication-pass time frame [id number], all medications were reviewed, administered and documented per hospital policy by Derek Chávez. Student documentation:I have reviewed and agree with all interventions, assessments performed and documented by Derek Chávez.
[2018-11-16 11:49] VITALS: BP 106/57
[2018-11-16 18:00] VITALS: BP 139/73
--- NOTE | 2018-11-16 18:24 | NUR ---
PATIENT REPORT RECEIVED FROM CHERELLE ESTRADA.
[2018-11-16 22:00] VITALS: BP 130/58
[2018-11-16] MEDS: insulin glargine (Lantus) pen - multi-dose SQ SCH (22:25)
[2018-11-17] MEDS ORDERED: VANCOMYCIN LEVEL IV ONE (01:30)
[2018-11-17 02:10] LABS: BASOPHILS # (AUTO) 0.1 X10'3 (0-0.2); BASOPHILS % (AUTO) 0.8 % (0-1); EOSINOPHILS # (AUTO) 0.2 X10'3 (0-0.9); EOSINOPHILS % (AUTO) 1.5 % (0-6); HEMATOCRIT 26.2 % (35.0-45.0); HEMOGLOBIN 9.1 g/dl (12.0-16.0); LYMPHOCYTES # (AUTO) 2.1 X10'3 (1.1-4.8); LYMPHOCYTES % (AUTO) 15.3 % (21-51); MEAN CORPUSCULAR HEMOGLOBIN 29.9 PG (27.0-31.0); MEAN CORPUSCULAR HGB CONC 34.7 g/dL (33.0-36.5); MEAN CORPUSCULAR VOLUME 86.2 FL (78-98); MONOCYTES % (AUTO) 7.1 % (2-12); NEUTROPHILS # (AUTO) 10.3 X10'3 (1.8-7.7); NEUTROPHILS % (AUTO) 75.3 % (42-75); PLATELET COUNT 587 X10'3 (140-440); RED BLOOD COUNT 3.04 X10'6 (4.20-5.60); RED CELL DISTRIBUTION WIDTH 13.9 % (11.5-14.5); WHITE BLOOD COUNT 13.7 X10'3 (4.5-11.0)
[2018-11-17 02:22] LABS: ALANINE AMINOTRANSFERASE 79 U/L (12-78); ALBUMIN 1.7 G/DL (3.4-5.0); ALBUMIN/GLOBULIN RATIO 0.4 (1.1-1.5); ALKALINE PHOSPHATASE 275 IU/L (46-116); ANION GAP 3 (8-16); ASPARTATE AMINO TRANSFERASE 60 U/L (10-37); BILIRUBIN,TOTAL 0.2 MG/DL (0.1-1.0); BLOOD UREA NITROGEN 11 MG/DL (7-18); BUN/CREATININE RATIO 15.3 (6.6-38.0); CALCIUM 7.9 MG/DL (8.5-10.1); CHLORIDE 103 MMOL/L (99-107); CREATININE 0.72 MG/DL (0.40-0.90); GLUCOSE 177 MG/DL (70-104); MAGNESIUM 1.8 MG/DL (1.5-2.4); POTASSIUM 3.7 MMOL/L (3.5-5.1); SODIUM 135 MMOL/L (135-145); TOTAL CARBON DIOXIDE 29.1 MMOL/L (24-32); TOTAL PROTEIN 6.1 G/DL (6.4-8.2); VANCOMYCIN,TROUGH 11.9 UG/ML (6.0-14.0); eGFR 83 ML/MIN
[2018-11-17] MEDS: vancomycin inj 1,250 MG in NS 250ml IV soln IV SCH (03:13)
[2018-11-17] MEDS: morphine 2 MG/ML inj. syringe IV PRN ×3 (04:43→22:51)
[2018-11-17] MEDS: piperacillin/tazo 3.375gm/50ml 50 ML IV SCH ×3 (05:29→22:53)
[2018-11-17 06:00] VITALS: BP 136/71
--- NOTE | 2018-11-17 06:47 | NUR ---
PATIENT REPORT GIVEN TO RUSLAN ESTRADA.
[2018-11-17] MEDS: K and/or MAG REPLACEMENT MC SCH (08:00)
[2018-11-17] MEDS: nicotine 14mg patch - 24hr TD SCH (08:00)
[2018-11-17] MEDS: pantoprazole 40mg Tablet.DR PO SCH (09:16)
[2018-11-17] MEDS: lactobacillus rhamnosus 10,000 MMU CELLS/CAPSULE PO SCH ×2 (09:16→19:15)
[2018-11-17] MEDS: heparin, porcine 5000 units/ml vial SQ SCH ×2 (09:17→19:15)
[2018-11-17] MEDS: insulin Lispro (HumaLOG) vial - multi-dose SQ SCH ×3 (09:32→19:13)
[2018-11-17 10:00] VITALS: BP 128/50
[2018-11-17] MEDS: magnesium hydroxide 30ml (MOM) UD suspension PO PRN (13:00)
[2018-11-17 18:00] VITALS: BP 133/75
--- NOTE | 2018-11-17 18:38 | NUR ---
Problems reprioritized. Patient report given, questions answered & plan of care reviewed with NATALIE Brock.
--- NOTE | 2018-11-17 18:42 | NUR ---
PT REPORT RECEIVED FROM RUSLAN ESTRADA.
[2018-11-17] MEDS: HYDROcodone/acetaminophen 10/325mg tab PO PRN (19:15)
[2018-11-17 22:00] VITALS: BP 112/59
[2018-11-17] MEDS: insulin glargine (Lantus) pen - multi-dose SQ SCH (23:30)
--- NOTE | 2018-11-18 04:14 | NUR ---
PT BLOOD SUGAR 68. 1X GLUCOSE SHOT GIVEN. BS RECHECKED 107. NOTIFIED HOSPITALIST REGARDING ADMINISTERING LANTUS AFTER DROP IN BS. ORDERED TO D/C HUMALOG AND CONTINUE LANTUS. 14 UNITS OF LANTUS GIVEN.
[2018-11-18] MEDS: HYDROcodone/acetaminophen 10/325mg tab PO PRN ×3 (05:56→18:14)
[2018-11-18] MEDS: piperacillin/tazo 3.375gm/50ml 50 ML IV SCH ×3 (05:56→20:46)
--- NOTE | 2018-11-18 07:00 | NUR ---
PT REPORT GIVEN TO VELASQUEZ ESTRADA.
[2018-11-18 07:13] VITALS: BP 118/66
[2018-11-18 07:17] LABS: BASOPHILS # (AUTO) 0.1 X10'3 (0-0.2); BASOPHILS % (AUTO) 0.9 % (0-1); EOSINOPHILS # (AUTO) 0.2 X10'3 (0-0.9); EOSINOPHILS % (AUTO) 1.5 % (0-6); HEMATOCRIT 30.2 % (35.0-45.0); HEMOGLOBIN 10.2 g/dl (12.0-16.0); LYMPHOCYTES # (AUTO) 2.1 X10'3 (1.1-4.8); LYMPHOCYTES % (AUTO) 17.4 % (21-51); MEAN CORPUSCULAR HEMOGLOBIN 29.1 PG (27.0-31.0); MEAN CORPUSCULAR HGB CONC 33.7 g/dL (33.0-36.5); MEAN CORPUSCULAR VOLUME 86.5 FL (78-98); MEAN PLATELET VOLUME 8.2 FL (7.4-10.4); MONOCYTES # (AUTO) 0.8 X10'3 (0-0.9); MONOCYTES % (AUTO) 6.6 % (2-12); NEUTROPHILS # (AUTO) 8.9 X10'3 (1.8-7.7); NEUTROPHILS % (AUTO) 73.6 % (42-75); PLATELET COUNT 686 X10'3 (140-440); RED BLOOD COUNT 3.49 X10'6 (4.20-5.60); WHITE BLOOD COUNT 12.2 X10'3 (4.5-11.0)
[2018-11-18] MEDS: pantoprazole 40mg Tablet.DR PO SCH (07:30)
[2018-11-18 07:38] LABS: ALANINE AMINOTRANSFERASE 70 U/L (12-78); ALBUMIN/GLOBULIN RATIO 0.4 (1.1-1.5); ALKALINE PHOSPHATASE 238 IU/L (46-116); ANION GAP 7 (8-16); ASPARTATE AMINO TRANSFERASE 37 U/L (10-37); BILIRUBIN,TOTAL 0.2 MG/DL (0.1-1.0); BLOOD UREA NITROGEN 9 MG/DL (7-18); BUN/CREATININE RATIO 11.7 (6.6-38.0); CALCIUM 9.1 MG/DL (8.5-10.1); CHLORIDE 100 MMOL/L (99-107); CREATININE 0.77 MG/DL (0.40-0.90); GLUCOSE 203 MG/DL (70-104); MAGNESIUM 2.2 MG/DL (1.5-2.4); POTASSIUM 3.9 MMOL/L (3.5-5.1); SODIUM 136 MMOL/L (135-145); TOTAL CARBON DIOXIDE 29.1 MMOL/L (24-32); TOTAL PROTEIN 6.8 G/DL (6.4-8.2); eGFR 76 ML/MIN
[2018-11-18] MEDS: nicotine 14mg patch - 24hr TD SCH (08:00)
[2018-11-18] MEDS: K and/or MAG REPLACEMENT MC SCH (08:00)
[2018-11-18] MEDS: lactobacillus rhamnosus 10,000 MMU CELLS/CAPSULE PO SCH ×2 (08:34→20:46)
[2018-11-18] MEDS: heparin, porcine 5000 units/ml vial SQ SCH ×2 (08:34→20:47)
--- NOTE | 2018-11-18 10:40 | NUR ---
Dr Medina requesting that I call [facility] [phone] to get the pathology report on patient for her Right foot amputation. Per Johan at [facility] the report is not complete yet, Dr Rivera is still reviewing
[2018-11-18 11:00] VITALS: BP 123/49
[2018-11-18] MEDS: magnesium hydroxide 30ml (MOM) UD suspension PO PRN (11:06)
--- NOTE | 2018-11-18 14:34 | NUR ---
Called [facility] again per Dr Medina request. Per Jo still no report Dr Rivera is still reviewing
[2018-11-18 18:00] VITALS: BP 155/79
--- NOTE | 2018-11-18 18:38 | NUR ---
Problems reprioritized. Patient report given, questions answered & plan of care reviewed with Delmy ESTRADA.
[2018-11-18] MEDS: ondansetron/PF 4mg/2ml inj IV PRN (19:56)
[2018-11-18] MEDS: docusate sod 100mg capsule PO SCH (20:46)
[2018-11-18] MEDS ORDERED: insulin glargine (Lantus) pen - multi-dose SQ SCH (21:00)
[2018-11-18] MEDS: proCHLORperazine 10 MG/2 ml inj IV PRN (21:13)
[2018-11-18 22:00] VITALS: BP 122/58
[2018-11-19] MEDS: HYDROcodone/acetaminophen 10/325mg tab PO PRN ×3 (00:33→17:13)
[2018-11-19] MEDS ORDERED: VANCOMYCIN LEVEL IV ONE (01:30)
[2018-11-19 01:38] LABS: BASOPHILS # (AUTO) 0.1 X10'3 (0-0.2); BASOPHILS % (AUTO) 1.1 % (0-1); EOSINOPHILS # (AUTO) 0.2 X10'3 (0-0.9); HEMOGLOBIN 10.7 g/dl (12.0-16.0); MEAN PLATELET VOLUME 7.7 FL (7.4-10.4); MONOCYTES # (AUTO) 0.8 X10'3 (0-0.9)
[2018-11-19 01:40] LABS: EOSINOPHILS % (AUTO) 1.9 % (0-6); HEMATOCRIT 31.1 % (35.0-45.0); LYMPHOCYTES # (AUTO) 2.2 X10'3 (1.1-4.8); LYMPHOCYTES % (AUTO) 20.7 % (21-51); MEAN CORPUSCULAR HEMOGLOBIN 29.7 PG (27.0-31.0); MEAN CORPUSCULAR HGB CONC 34.4 g/dL (33.0-36.5); MEAN CORPUSCULAR VOLUME 86.4 FL (78-98); MONOCYTES % (AUTO) 7.8 % (2-12); NEUTROPHILS # (AUTO) 7.3 X10'3 (1.8-7.7); NEUTROPHILS % (AUTO) 68.5 % (42-75); PLATELET COUNT 686 X10'3 (140-440); RED CELL DISTRIBUTION WIDTH 14.2 % (11.5-14.5); WHITE BLOOD COUNT 10.7 X10'3 (4.5-11.0)
[2018-11-19 01:51] LABS: ALBUMIN 2.1 G/DL (3.4-5.0); ANION GAP 4 (8-16); BLOOD UREA NITROGEN 12 MG/DL (7-18); BUN/CREATININE RATIO 15.6 (6.6-38.0); CALCIUM 8.6 MG/DL (8.5-10.1); CHLORIDE 101 MMOL/L (99-107); CREATININE 0.77 MG/DL (0.40-0.90); GLUCOSE 227 MG/DL (70-104); MAGNESIUM 2.3 MG/DL (1.5-2.4); POTASSIUM 4.5 MMOL/L (3.5-5.1); SODIUM 135 MMOL/L (135-145); eGFR 76 ML/MIN
[2018-11-19 02:04] LABS: VANCOMYCIN,TROUGH 8.6 UG/ML (6.0-14.0)
[2018-11-19] MEDS: piperacillin/tazo 3.375gm/50ml 50 ML IV SCH ×2 (05:20→13:33)
[2018-11-19 06:00] VITALS: BP 113/66
--- NOTE | 2018-11-19 06:25 | NUR ---
PT REPORT GIVEN TO LENY ESTRADA.
[2018-11-19] MEDS: K and/or MAG REPLACEMENT MC SCH (08:00)
[2018-11-19] MEDS: nicotine 14mg patch - 24hr TD SCH (08:00)
[2018-11-19] MEDS: docusate sod 100mg capsule PO SCH (08:02)
[2018-11-19] MEDS: heparin, porcine 5000 units/ml vial SQ SCH (08:02)
[2018-11-19] MEDS: pantoprazole 40mg Tablet.DR PO SCH (08:02)
[2018-11-19] MEDS: lactobacillus rhamnosus 10,000 MMU CELLS/CAPSULE PO SCH (08:02)
[2018-11-19 10:00] VITALS: BP 102/51
--- NOTE | 2018-11-19 10:50 | NUR ---
reassessment: Pt PO 100% meals meeting needs. LBM 11/18. Will continue to monitor. Recommendations: 1) Continue CHO controlled diet 2) Double protein TID 3) Wt per rx Addendum: 11/19/18 at [address] Amended: Links added.
[2018-11-19] MEDS ORDERED: HYDR-3964 PO (15:19)
[2018-11-19] MEDS ORDERED: LANTUS SQ (15:26)
== END 2018-11-19 19:40 | disposition home health service (06) | DRG 305 ==
LOC: ER 11:46 → ORTHO 4S 16:25 → CMPBEDREQ 11-15 00:21
PROVIDERS: ADMIT Internal Medicine; ATTEND Family Medicine
PROC: 0Y6M0ZB Detachment at Right Foot, Partial 2nd Ray, Open Approach (ICD-10-PCS; 2018-11-14)
PROC: 0Y6M0ZC Detachment at Right Foot, Partial 3rd Ray, Open Approach (ICD-10-PCS; 2018-11-14)
PROC: 0Y6M0ZD Detachment at Right Foot, Partial 4th Ray, Open Approach (ICD-10-PCS; 2018-11-14)
PROC: 0Y6M0ZF Detachment at Right Foot, Partial 5th Ray, Open Approach (ICD-10-PCS; 2018-11-14)
PROC: 0Y6M0Z9 Detachment at Right Foot, Partial 1st Ray, Open Approach (ICD-10-PCS; principal; 2018-11-14 10:55)
DX: E11.69 Type 2 diabetes mellitus with other specified complication (principal); E43 Unspecified severe protein-calorie malnutrition; I96 Gangrene, not elsewhere classified; I69.351 Hemiplegia and hemiparesis following cerebral infarction affecting right dominant side; E87.1 Hypo-osmolality and hyponatremia; E11.65 Type 2 diabetes mellitus with hyperglycemia; M86.8X7 Other osteomyelitis, ankle and foot; L97.419 Non-pressure chronic ulcer of right heel and midfoot with unspecified severity; E11.621 Type 2 diabetes mellitus with foot ulcer; L03.115 Cellulitis of right lower limb; B95.7 Other staphylococcus as the cause of diseases classified elsewhere; E11.52 Type 2 diabetes mellitus with diabetic peripheral angiopathy with gangrene; D64.9 Anemia, unspecified; B95.4 Other streptococcus as the cause of diseases classified elsewhere; F12.10 Cannabis abuse, uncomplicated; F17.200 Nicotine dependence, unspecified, uncomplicated; R11.2 Nausea with vomiting, unspecified; R74.0 Nonspecific elevation of levels of transaminase and lactic acid dehydrogenase [LDH]; Z59.0 Homelessness; Z88.5 Allergy status to narcotic agent; Z91.041 Radiographic dye allergy status; Z98.51 Tubal ligation status; Z71.6 Tobacco abuse counseling; Z68.26 Body mass index [BMI] 26.0-26.9, adult
CPT/HCPCS: 36415; 73630; 80048; 80053; 80202; 81001; 82948; 83036; 83605; 83735; 85025; 85610; 85651; 86140; 87040; 87070; 87075; 87077; 87102; 87186; 93005; 96365; 96375; 97110; 97116; 97161; 97530; 99285; A6222; A6449; A7000; G0378; J0780; J1644; J1815; J2250; J2270; J2405; J2543; J3010; J3370; J7030; J7120; J8597

== ENCOUNTER 2019-04-04 22:28 | Emergency (ER) | payer MEDICAID ==
[~2019-04-04] VITALS: Ht 154.9 cm; Wt 59.1 kg
[~2019-04-04 22:28] MED LIST changes: -CEPH250T PO; -DOXY100C43 PO; +HYDR-3964 PO; +LANTUS SQ; -LANTUS SUBCUT; -NICO-631 TD; -ONDA8TAB6 PO
[2019-04-04] MEDS ORDERED: normal saline 1000ML IV soln IVB ONE (23:30)
[2019-04-05 00:02] LABS: ALANINE AMINOTRANSFERASE 21 U/L (12-78); ALBUMIN/GLOBULIN RATIO 0.8 (1.1-1.5); ALKALINE PHOSPHATASE 223 IU/L (46-116); ANION GAP 12 (8-16); ASPARTATE AMINO TRANSFERASE 13 U/L (10-37); BILIRUBIN,TOTAL 0.2 MG/DL (0.1-1.0); BLOOD UREA NITROGEN 24 MG/DL (7-18); BUN/CREATININE RATIO 34.3 (6.6-38.0); CALCIUM 7.9 MG/DL (8.5-10.1); CHLORIDE 105 MMOL/L (99-107); GLUCOSE 304 MG/DL (70-104); POTASSIUM 3.4 MMOL/L (3.5-5.1); SODIUM 137 MMOL/L (135-145); TOTAL CARBON DIOXIDE 20.3 MMOL/L (24-32); eGFR 85 ML/MIN
--- NOTE | 2019-04-05 00:04 | NUR ---
PT PROVIDED INITIAL UA AND LEFT IT IN BATHROOM, UNABLE TO FIND SAMPLE THAT WAS LEFT. INFORMED PT THAT WE NEEDED A NEW SAMPLE. PT STATES "I CANT GO NOW SINCE I JUST WENT, BUT ILL TRY MAYBE LATER." WILL CONTINUE TO MONITOR AND ATTEMPT TO OBTAIN UA.
[2019-04-05 00:11] LABS: BASOPHILS # (AUTO) 0.1 X10'3 (0-0.2); EOSINOPHILS # (AUTO) 0.2 X10'3 (0-0.9); EOSINOPHILS % (AUTO) 2.6 % (0-6); HEMATOCRIT 40.3 % (35.0-45.0); HEMOGLOBIN 13.5 g/dl (12.0-16.0); LYMPHOCYTES # (AUTO) 2.2 X10'3 (1.1-4.8); LYMPHOCYTES % (AUTO) 28.2 % (21-51); MEAN CORPUSCULAR HEMOGLOBIN 28.5 PG (27.0-31.0); MEAN CORPUSCULAR HGB CONC 33.4 g/dL (33.0-36.5); MEAN CORPUSCULAR VOLUME 85.4 FL (78-98); MEAN PLATELET VOLUME 9.5 FL (7.4-10.4); MONOCYTES # (AUTO) 0.8 X10'3 (0-0.9); MONOCYTES % (AUTO) 9.9 % (2-12); NEUTROPHILS # (AUTO) 4.4 X10'3 (1.8-7.7); NEUTROPHILS % (AUTO) 58.3 % (42-75); PLATELET COUNT 275 X10'3 (140-440); RED BLOOD COUNT 4.72 X10'6 (4.20-5.60); RED CELL DISTRIBUTION WIDTH 15.3 % (11.5-14.5); WHITE BLOOD COUNT 7.6 X10'3 (4.5-11.0)
[2019-04-05 01:02] VITALS: BP 130/81
== END 2019-04-05 01:20 | disposition home or self-care (01) ==
LOC: ER 22:28
DX: R19.7 Diarrhea, unspecified (principal); R10.84 Generalized abdominal pain; E11.9 Type 2 diabetes mellitus without complications; F12.90 Cannabis use, unspecified, uncomplicated; F15.90 Other stimulant use, unspecified, uncomplicated; Z88.6 Allergy status to analgesic agent; Z88.8 Allergy status to other drugs, medicaments and biological substances
CPT/HCPCS: 36415; 80053; 82948; 85025; 99283; J7040

== ENCOUNTER 2019-08-03 11:05 | Inpatient (IN) | payer MEDICAID ==
[~2019-08-03] VITALS: Ht 152.4 cm; Wt 63.6 kg
[2019-08-03] VITALS (15 sets, daily range): BP systolic 92–114; BP diastolic 47–63
--- NOTE | 2019-08-03 11:55 | NUR ---
discussed pt's BG level with milli hurtado; new order for 2L NS bolus received.
[2019-08-03 11:58] LABS: BASOPHILS # (AUTO) 0.2 X10'3 (0-0.2); BASOPHILS % (AUTO) 0.8 % (0-1); EOSINOPHILS # (AUTO) 0.1 X10'3 (0-0.9); EOSINOPHILS % (AUTO) 0.4 % (0-6); HEMATOCRIT 35.7 % (35.0-45.0); LYMPHOCYTES # (AUTO) 1.5 X10'3 (1.1-4.8); LYMPHOCYTES % (AUTO) 8.3 % (21-51); MEAN CORPUSCULAR HEMOGLOBIN 28.4 PG (27.0-31.0); MEAN CORPUSCULAR HGB CONC 33.6 g/dL (33.0-36.5); MEAN CORPUSCULAR VOLUME 84.7 FL (78-98); MEAN PLATELET VOLUME 7.8 FL (7.4-10.4); MONOCYTES # (AUTO) 1.1 X10'3 (0-0.9); MONOCYTES % (AUTO) 6.2 % (2-12); NEUTROPHILS # (AUTO) 15.6 X10'3 (1.8-7.7); NEUTROPHILS % (AUTO) 84.3 % (42-75); PLATELET COUNT 685 X10'3 (140-440); RED BLOOD COUNT 4.22 X10'6 (4.20-5.60); RED CELL DISTRIBUTION WIDTH 14.6 % (11.5-14.5); WHITE BLOOD COUNT 18.5 X10'3 (4.5-11.0)
[2019-08-03] MEDS ORDERED: normal saline 1000ml 1,000 ML IV ONE ×3 (12:00→13:00)
[2019-08-03] MEDS ORDERED: piperacillin/tazo 3.375gm/50ml 50 ML IV ONE (12:15)
[2019-08-03 12:20] LABS: ALANINE AMINOTRANSFERASE 20 U/L (12-78); ALBUMIN 2.3 G/DL (3.4-5.0); ALBUMIN/GLOBULIN RATIO 0.4 (1.1-1.5); ALKALINE PHOSPHATASE 226 IU/L (46-116); ANION GAP 10 (8-16); ASPARTATE AMINO TRANSFERASE 20 U/L (10-37); BILIRUBIN,TOTAL 0.2 MG/DL (0.1-1.0); BLOOD UREA NITROGEN 13 MG/DL (7-18); BUN/CREATININE RATIO 13.8 (6.6-38.0); CALCIUM 8.3 MG/DL (8.5-10.1); CHLORIDE 94 MMOL/L (99-107); CREATININE 0.94 MG/DL (0.40-0.90); POTASSIUM 4.2 MMOL/L (3.5-5.1); SODIUM 129 MMOL/L (135-145); TOTAL CARBON DIOXIDE 25.1 MMOL/L (24-32); TOTAL PROTEIN 7.6 G/DL (6.4-8.2); eGFR 61 ML/MIN
[2019-08-03] MEDS ORDERED: vancomycin/NS 1 GM ADD-VANTAGE 250 ML IV ONE (12:20)
[2019-08-03 12:25] LABS: GLUCOSE 502 MG/DL (70-104)
[2019-08-03 12:46] LABS: MAGNESIUM 1.9 MG/DL (1.5-2.4)
[2019-08-03] MEDS ORDERED: insulin regular, human 10 units/0.1 ml syringe IV ONE (13:00)
[2019-08-03 14:30] LABS: CLARITY,URINE CLEAR (Clear); COLOR,URINE YELLOW (Yellow); GLUCOSE, URINE >=1000 mg/dl (Neg); KETONES,URINE NEGATIVE (Neg); LEUKOCYTE ESTERASE ,URINE NEGATIVE (Neg); NITRITES, URINE NEGATIVE (Neg); OCCULT BLOOD,URINE TRACE-INTACT (Neg); PH,URINE 6.5 (4.8-8.0); PROTEIN,URINE NEGATIVE (Neg); UROBILINOGEN,URINE 0.2 E.U/dL (0.2-1.0)
[2019-08-03 14:36] LABS: UA COLLECTION TYPE CLN CATCH MIDSTREAM
[2019-08-03 14:52] LABS: RBC,URINE 0-2 /HPF (0-2); SQUAMOUS EPITHELIAL CELL,UR MODERATE /LPF (FEW); WBC,URINE 0-4 /HPF (0-4); YEAST FEW /HPF (NEGATIVE)
[2019-08-03 14:53] LABS: BACTERIA,URINE 1+ /HPF (Neg)
--- NOTE | 2019-08-03 17:00 | NUR ---
RECEIVED A CALL FROM CHARGE NURSE IN SURGERY THAT THEY WILL BE PICKING PATIENT UP IN 10 MINUTES FOR LEFT FOOT AMPUTATION WITH DR CISNEROS. BS 245, LR RUNNING, AND ALL BELONGINGS PACKED. I CALLED AND GAVE REPORT TO RECOVERY.
[2019-08-03] MEDS ORDERED: ringers solution, lacted 1,000 ML IV SCH (17:33)
[2019-08-03] MEDS ORDERED: proCHLORperazine 10 MG/2 ml inj IV PRN (17:35)
[2019-08-03] MEDS ORDERED: meperidine/PF 25mg/ml syringe IV PRN ×2 (17:35)
[2019-08-03] MEDS ORDERED: morphine 4 MG/ML inj SYRINge IV PRN ×2 (17:35)
[2019-08-03] MEDS ORDERED: ondansetron/PF 4mg/2ml inj IV PRN (17:35)
[2019-08-03] MEDS ORDERED: fentaNYL /PF 50mcg/ml 5ml ampule ONE (17:46)
[2019-08-03] MEDS ORDERED: propofol inj 20 ML IV ONE (17:49)
[2019-08-03] MEDS ORDERED: LIDOcaine 2% (20mg/ml) 5ml vial ONE (17:49)
[2019-08-03] MEDS ORDERED: rocuronium 10mg/ml inj IV ONE (17:49)
[2019-08-03] MEDS ORDERED: sevoflurane 250ml liquid IH ONE (17:51)
[2019-08-03] MEDS ORDERED: insulin regular, human vial - multi-dose ONE (18:23)
[2019-08-03] MEDS ORDERED: sugammadex 200mg/2ml injection IV ONE (18:31)
[2019-08-03] MEDS ORDERED: ondansetron/PF 4mg/2ml inj ONE (18:33)
--- NOTE | 2019-08-03 18:50 | NUR ---
Received from OR via BED, accompanied by Anesthesiologist DR TAVARES--- and report given by Anesthesiolgist. PATIENT WAKING UP, DENIES PAIN, V/S WNL, NEUROVASCULAR CHECKS INTACT, 18G PIV RUE, LEFT BKA DRESSING CDI, BG 171 MD NOTIFIED NO INSULIN ORDERED,
--- NOTE | 2019-08-03 18:56 | NUR ---
WILL CONTINUE TO MONITOR FOR CHANGES. V/S STABLE AT THIS TIME.
[2019-08-03] MEDS ORDERED: ePHEDrine 50MG/ML INJ. ONE (19:02)
[2019-08-03] MEDS ORDERED: albumin (Human) 5% 250ml 250 ML IV ONE (19:02)
[2019-08-03] MEDS: meperidine/PF 25mg/ml syringe IV PRN ×2 (19:13→19:26)
[2019-08-03] MEDS ORDERED: dextrose ORAL solution 15 GM/59 ML bottle PO PRN ×2 (19:25)
[2019-08-03] MEDS ORDERED: HYDROcodone/acetaminophen 5mg/325mg tablet PO PRN (19:25)
[2019-08-03] MEDS ORDERED: HYDROmorphone inj. 0.5 MG/0.5 ML DISP.SYRIN IV PRN (19:25)
[2019-08-03] MEDS ORDERED: glucagon, human recombinant 1mg kit SUBCUT PRN (19:25)
[2019-08-03] MEDS ORDERED: magnesium hydroxide 30ml (MOM) UD suspension PO PRN (19:25)
[2019-08-03] MEDS ORDERED: dextrose 50%-water 50ml dispensing syringe IV PRN ×2 (19:25)
[2019-08-03] MEDS ORDERED: MESSAGE TO PHARMACY PO ONE (19:25)
[2019-08-03] MEDS ORDERED: mag hydrox/Alum hydrox/simeth 30ml oral suspension PO PRN (19:25)
--- NOTE | 2019-08-03 19:40 | NUR ---
PATIENT A&OX4, STATES PAIN TOLERABLE NOW, V/S WNL, NEUROVASCULAR CHECKS INTACT, 18G PIV RUE, LEFT BKA DRESSING CDI, PATIENT BLADDER SCANNED FOR ONLY 35CC IN BLADDER. PATIENT TAKEN TO 350A WITH ALL BELONGINGS AND HOOKED UP TO MONITORS IN ROOM AND REPORT GIVEN TO RN WHO HAS TAKEN OVER PATIENT CARE.
[2019-08-03] MEDS: HYDROmorphone 1 mg/ml syringe IV PRN (21:12)
[2019-08-03 21:22] LABS: HEMOGLOBIN A1C 13.9 % (4.5-6.2)
[2019-08-03] MEDS: insulin glargine (Lantus) pen - multi-dose SQ SCH (21:45)
[2019-08-03] MEDS: piperacillin/tazo 4.5gm/100ml 100 ML IV SCH (23:29)
[2019-08-04] MEDS: HYDROcodone/acetaminophen 10/325mg tab PO PRN ×4 (02:02→23:00)
[2019-08-04 04:00] VITALS: BP 100/55
[2019-08-04] MEDS: HYDROmorphone 1 mg/ml syringe IV PRN ×5 (04:48→20:06)
--- NOTE | 2019-08-04 06:00 | NUR ---
Patient in room AFIA 350. I have received report from NATALIE Crespo and had the opportunity to ask questions and assume patient care.
[2019-08-04 06:12] LABS: BASOPHILS # (AUTO) 0.1 X10'3 (0-0.2); BASOPHILS % (AUTO) 0.5 % (0-1); EOSINOPHILS # (AUTO) 0.2 X10'3 (0-0.9); EOSINOPHILS % (AUTO) 1.8 % (0-6); HEMATOCRIT 26.6 % (35.0-45.0); HEMOGLOBIN 9.2 g/dl (12.0-16.0); LYMPHOCYTES # (AUTO) 1.9 X10'3 (1.1-4.8); LYMPHOCYTES % (AUTO) 18.9 % (21-51); MEAN CORPUSCULAR HEMOGLOBIN 29.5 PG (27.0-31.0); MEAN CORPUSCULAR HGB CONC 34.6 g/dL (33.0-36.5); MEAN CORPUSCULAR VOLUME 85.2 FL (78-98); MEAN PLATELET VOLUME 8.1 FL (7.4-10.4); MONOCYTES # (AUTO) 0.6 X10'3 (0-0.9); MONOCYTES % (AUTO) 6.1 % (2-12); NEUTROPHILS # (AUTO) 7.2 X10'3 (1.8-7.7); NEUTROPHILS % (AUTO) 72.7 % (42-75); PLATELET COUNT 572 X10'3 (140-440); RED BLOOD COUNT 3.12 X10'6 (4.20-5.60); RED CELL DISTRIBUTION WIDTH 14.5 % (11.5-14.5); WHITE BLOOD COUNT 9.9 X10'3 (4.5-11.0)
[2019-08-04 06:21] LABS: ALBUMIN 1.9 G/DL (3.4-5.0); ANION GAP 7 (8-16); BLOOD UREA NITROGEN 14 MG/DL (7-18); BUN/CREATININE RATIO 20.6 (6.6-38.0); CALCIUM 7.3 MG/DL (8.5-10.1); CHLORIDE 104 MMOL/L (99-107); CREATININE 0.68 MG/DL (0.40-0.90); GLUCOSE 232 MG/DL (70-104); POTASSIUM 3.9 MMOL/L (3.5-5.1); SODIUM 135 MMOL/L (135-145); TOTAL CARBON DIOXIDE 24.3 MMOL/L (24-32); eGFR 88 ML/MIN
--- NOTE | 2019-08-04 07:07 | NUR ---
Problems reprioritized. Patient report given, questions answered & plan of care reviewed with DAVID. Addendum: 08/04/19 at 0707 by Zachary Conklin RN Amended: Links added.
[2019-08-04 08:00] VITALS: BP 96/55
[2019-08-04] MEDS: piperacillin/tazo 4.5gm/100ml 100 ML IV SCH ×3 (08:13→23:45)
[2019-08-04] MEDS: enoxaparin 40mg/0.4ml syringe SUBCUT SCH (08:14)
[2019-08-04] MEDS: ondansetron/PF 4mg/2ml inj IV PRN ×2 (08:14→14:01)
[2019-08-04] MEDS: insulin Lispro (HumaLOG) vial - multi-dose SQ SCH ×3 (08:20→18:43)
[2019-08-04 12:00] VITALS: BP 124/68
--- NOTE | 2019-08-04 12:51 | NUR ---
DM Consult: A1C 13.9. Pt hx homeless admit w/ non-healing L foot DM ulcer worsening. Now s/p L foot amputation. PO 50% first carb controlled meal. LBM 08/03. Pt takes Lantus per EMR. Would benefit from DM/high protein diet eds once more appropriate post-op. Will continue to monitor for additional protein needs. Rec: 1. continue carb controlled diet 2. monitor for ONS needs 3. consider opioid antagonist per MD approval post-op on multiple pain meds 4. routine bowel care 5. MVI for wound healing post-op per MD 6. DM/high protein eds once stable post-op Addendum: 08/04/19 at [address] Amended: Links added.
--- NOTE | 2019-08-04 18:00 | NUR ---
Patient was rounded on frequently today, day too busy to chart indivdual interventions.
--- NOTE | 2019-08-04 18:30 | NUR ---
Problems reprioritized. Patient report given, questions answered & plan of care reviewed with Kim RN.
[2019-08-04 19:30] VITALS: BP 110/62
[2019-08-04] MEDS: insulin glargine (Lantus) pen - multi-dose SQ SCH (21:20)
[2019-08-04 23:00] VITALS: BP 127/64
[2019-08-05] MEDS: HYDROmorphone 1 mg/ml syringe IV PRN ×6 (00:56→23:25)
[2019-08-05 01:00] VITALS: BP 119/69
[2019-08-05] MEDS: HYDROcodone/acetaminophen 10/325mg tab PO PRN ×4 (03:07→20:55)
[2019-08-05 04:53] LABS: BASOPHILS # (AUTO) 0.1 X10'3 (0-0.2); BASOPHILS % (AUTO) 1.2 % (0-1); EOSINOPHILS # (AUTO) 0.3 X10'3 (0-0.9); EOSINOPHILS % (AUTO) 3.2 % (0-6); HEMATOCRIT 27.9 % (35.0-45.0); HEMOGLOBIN 9.6 g/dl (12.0-16.0); LYMPHOCYTES # (AUTO) 2.1 X10'3 (1.1-4.8); LYMPHOCYTES % (AUTO) 24.5 % (21-51); MEAN CORPUSCULAR HEMOGLOBIN 29.1 PG (27.0-31.0); MEAN CORPUSCULAR HGB CONC 34.5 g/dL (33.0-36.5); MEAN CORPUSCULAR VOLUME 84.4 FL (78-98); MEAN PLATELET VOLUME 7.8 FL (7.4-10.4); MONOCYTES # (AUTO) 0.7 X10'3 (0-0.9); MONOCYTES % (AUTO) 8.2 % (2-12); NEUTROPHILS # (AUTO) 5.5 X10'3 (1.8-7.7); NEUTROPHILS % (AUTO) 62.9 % (42-75); PLATELET COUNT 573 X10'3 (140-440); RED CELL DISTRIBUTION WIDTH 14.7 % (11.5-14.5); WHITE BLOOD COUNT 8.7 X10'3 (4.5-11.0)
[2019-08-05 05:06] LABS: ALBUMIN 1.9 G/DL (3.4-5.0); ANION GAP 4 (8-16); BLOOD UREA NITROGEN 15 MG/DL (7-18); BUN/CREATININE RATIO 21.4 (6.6-38.0); CALCIUM 7.8 MG/DL (8.5-10.1); CHLORIDE 105 MMOL/L (99-107); GLUCOSE 171 MG/DL (70-104); POTASSIUM 4.1 MMOL/L (3.5-5.1); SODIUM 137 MMOL/L (135-145); eGFR 85 ML/MIN
--- NOTE | 2019-08-05 06:00 | NUR ---
Patient in room ORTHO 4014. I have received report from NATALIE Alvarez and had the opportunity to ask questions and assume patient care.
[2019-08-05 07:00] VITALS: BP 109/54
[2019-08-05] MEDS: piperacillin/tazo 4.5gm/100ml 100 ML IV SCH ×3 (08:32→23:24)
[2019-08-05] MEDS: enoxaparin 40mg/0.4ml syringe SUBCUT SCH (08:33)
[2019-08-05] MEDS: insulin Lispro (HumaLOG) vial - multi-dose SQ SCH ×3 (08:36→19:00)
[2019-08-05 11:00] VITALS: BP 136/71
--- NOTE | 2019-08-05 12:13 | NUR ---
Patient in room ORTHO 4014. I have received report from Lexii ESTRADA and had the opportunity to ask questions and assume patient care.
--- NOTE | 2019-08-05 12:17 | NUR ---
PATIENT TRANSFERRED TO ORTHO/NEURO INTO THE CARE OF RN ROBERTA
[2019-08-05 13:00] VITALS: BP 119/69
--- NOTE | 2019-08-05 13:58 | NUR ---
I cannot cover carbs for patient, tray was taken to kitchen, going to cover correctional
[2019-08-05] MEDS ORDERED: HYDROmorphone inj. 0.5 MG/0.5 ML DISP.SYRIN IV PRN (17:45)
[2019-08-05 18:00] VITALS: BP 151/86
[2019-08-05] MEDS: nystatin 15 GM powder TP SCH (18:02)
--- NOTE | 2019-08-05 18:19 | NUR ---
Problems reprioritized. Patient report given, questions answered & plan of care reviewed with Yanira Cole RN.
[2019-08-05] MEDS: lactobacillus rhamnosus 10,000 MMU CELLS/CAPSULE PO SCH (20:55)
[2019-08-05] MEDS: insulin glargine (Lantus) pen - multi-dose SQ SCH (20:58)
[2019-08-05 22:00] VITALS: BP 107/51
[2019-08-06] VITALS (18 sets, daily range): BP systolic 108–158; BP diastolic 44–82
[2019-08-06] MEDS: HYDROcodone/acetaminophen 10/325mg tab PO PRN ×4 (02:41→21:11)
[2019-08-06] MEDS: HYDROmorphone 1 mg/ml syringe IV PRN ×2 (04:33→19:12)
--- NOTE | 2019-08-06 06:30 | NUR ---
Problems reprioritized. Patient report given, questions answered & plan of care reviewed with NATALIE Thao.
--- NOTE | 2019-08-06 06:36 | NUR ---
Patient in room ORTHO 4014. I have received report from Yanira ESTRADA and had the opportunity to ask questions and assume patient care.
[2019-08-06 07:13] LABS: BASOPHILS # (AUTO) 0.1 X10'3 (0-0.2); EOSINOPHILS # (AUTO) 0.3 X10'3 (0-0.9); HEMOGLOBIN 9.9 g/dl (12.0-16.0); NEUTROPHILS # (AUTO) 5.6 X10'3 (1.8-7.7)
[2019-08-06 07:15] LABS: BASOPHILS % (AUTO) 1.3 % (0-1); EOSINOPHILS % (AUTO) 2.9 % (0-6); HEMATOCRIT 28.6 % (35.0-45.0); LYMPHOCYTES % (AUTO) 22.6 % (21-51); MEAN CORPUSCULAR HEMOGLOBIN 29.4 PG (27.0-31.0); MEAN CORPUSCULAR HGB CONC 34.7 g/dL (33.0-36.5); MEAN CORPUSCULAR VOLUME 84.7 FL (78-98); MEAN PLATELET VOLUME 7.8 FL (7.4-10.4); MONOCYTES # (AUTO) 0.9 X10'3 (0-0.9); MONOCYTES % (AUTO) 10.6 % (2-12); NEUTROPHILS % (AUTO) 62.6 % (42-75); PLATELET COUNT 602 X10'3 (140-440); RED BLOOD COUNT 3.38 X10'6 (4.20-5.60); RED CELL DISTRIBUTION WIDTH 14.4 % (11.5-14.5); WHITE BLOOD COUNT 8.9 X10'3 (4.5-11.0)
--- NOTE | 2019-08-06 07:27 | NUR ---
Problems reprioritized. Patient report given, questions answered & plan of care reviewed with Juliana Kruger in Recovery.
[2019-08-06 07:30] LABS: ANION GAP 2 (8-16); BLOOD UREA NITROGEN 12 MG/DL (7-18); BUN/CREATININE RATIO 17.4 (6.6-38.0); CALCIUM 8.1 MG/DL (8.5-10.1); CHLORIDE 104 MMOL/L (99-107); CREATININE 0.69 MG/DL (0.40-0.90); GLUCOSE 165 MG/DL (70-104); POTASSIUM 4.3 MMOL/L (3.5-5.1); SODIUM 138 MMOL/L (135-145); TOTAL CARBON DIOXIDE 31.6 MMOL/L (24-32); eGFR 86 ML/MIN
[2019-08-06] MEDS ORDERED: sevoflurane 250ml liquid IH ONE (07:30)
[2019-08-06] MEDS ORDERED: midazolam 2 mg/2 ml injection ONE (07:39)
[2019-08-06] MEDS ORDERED: propofol inj 20 ML IV ONE (07:48)
[2019-08-06] MEDS ORDERED: ROPIVAcaine 0.5% (5mg/ml) 30ml vial ONE (07:48)
[2019-08-06] MEDS ORDERED: fentaNYL/PF 50MCG/1 ML 2ML syringe ONE (07:48)
[2019-08-06] MEDS: nystatin 15 GM powder TP SCH ×3 (08:00→21:17)
[2019-08-06] MEDS: enoxaparin 40mg/0.4ml syringe SUBCUT SCH (08:00)
[2019-08-06] MEDS: lactobacillus rhamnosus 10,000 MMU CELLS/CAPSULE PO SCH ×2 (08:00→19:12)
[2019-08-06] MEDS: piperacillin/tazo 4.5gm/100ml 100 ML IV SCH ×2 (08:00→15:32)
[2019-08-06] MEDS ORDERED: ringers solution, lacted 1,000 ML IV SCH (08:03)
[2019-08-06] MEDS ORDERED: proCHLORperazine 10 MG/2 ml inj IV PRN (08:05)
[2019-08-06] MEDS ORDERED: morphine 4 MG/ML inj SYRINge IV PRN ×2 (08:05)
[2019-08-06] MEDS ORDERED: ondansetron/PF 4mg/2ml inj IV PRN (08:05)
[2019-08-06] MEDS ORDERED: meperidine/PF 25mg/ml syringe IV PRN ×3 (08:05)
[2019-08-06] MEDS ORDERED: ePHEDrine 50MG/ML INJ. ONE (08:09)
[2019-08-06] MEDS ORDERED: 0.9 % SODIUM CHLORIDE 10 ML VIAL ONE (08:09)
[2019-08-06] MEDS ORDERED: LIDOcaine 2% (20mg/ml) 5ml vial ONE (08:09)
[2019-08-06 08:49] LABS: PLATELET ESTIMATE INCREASED
[2019-08-06 08:50] LABS: HYPOCHROMASIA 1+; POLYCHROMASIA 2+; ROULEAUX 1+
--- NOTE | 2019-08-06 09:05 | NUR ---
Received from OR via , accompanied by Anesthesiologist and report given by Anesthesiolgist. pATIENT ARRIVED VIA HOSPITAL BED. VSS CHARTED. DRESSING TO LEFT STUMP CDI, VSS CHARTED.WILL CONTINUE TO MONITOR
--- NOTE | 2019-08-06 09:31 | NUR ---
Patient in room ORTHO 4014. I have received report from Alondra ESTRADA from recovery and had the opportunity to ask questions and assume patient care.
--- NOTE | 2019-08-06 10:05 | NUR ---
Report called to Master RN on Ortho, all questions and concerns addressed. Discharge criteria met. VSS as charted. CATY bandage to left BKA, CDI. PIV to right AC, with LR Infusing as ordered, SCD's in place. Transferred via hospital bed.
--- NOTE | 2019-08-06 10:10 | NUR ---
on the floor from recovery.
[2019-08-06] MEDS: ondansetron/PF 4mg/2ml inj IV PRN (10:33)
--- NOTE | 2019-08-06 12:24 | NUR ---
Patient does not remember what medications she takes at home. Patient said she will call a family/friend to find out what medications she takes at home.
[2019-08-06] MEDS: insulin Lispro (HumaLOG) vial - multi-dose SQ SCH ×2 (14:10→19:34)
[2019-08-06] MEDS ORDERED: CLIN300C3 PO (15:43)
[2019-08-06] MEDS ORDERED: METR-159 PO (15:44)
--- NOTE | 2019-08-06 18:25 | NUR ---
Problems reprioritized. Patient report given, questions answered & plan of care reviewed with Yanira ESTRADA.
[2019-08-06] MEDS: insulin glargine (Lantus) pen - multi-dose SQ SCH (21:15)
[2019-08-07] MEDS: piperacillin/tazo 4.5gm/100ml 100 ML IV SCH ×3 (00:06→15:34)
[2019-08-07] MEDS: HYDROmorphone 1 mg/ml syringe IV PRN ×2 (00:30→03:21)
[2019-08-07] MEDS: HYDROcodone/acetaminophen 10/325mg tab PO PRN (01:50)
[2019-08-07 02:00] VITALS: BP 134/71
[2019-08-07] MEDS ORDERED: HYDROmorphone/NS 1 mg/ml CADD 50 ML IV SCH ×2 (04:15→04:35)
[2019-08-07] MEDS ORDERED: CADD PCA waste documentation MC SCH (04:30)
[2019-08-07] MEDS: HYDROmorphone/NS 1 mg/ml CADD 50 ML IV SCH ×10 (04:56→23:00)
[2019-08-07 06:07] LABS: BASOPHILS # (AUTO) 0.1 X10'3 (0-0.2); BASOPHILS % (AUTO) 0.6 % (0-1); EOSINOPHILS # (AUTO) 0.2 X10'3 (0-0.9); NEUTROPHILS # (AUTO) 10.2 X10'3 (1.8-7.7); WHITE BLOOD COUNT 14.6 X10'3 (4.5-11.0)
[2019-08-07 06:09] LABS: EOSINOPHILS % (AUTO) 1.5 % (0-6); HEMATOCRIT 27.8 % (35.0-45.0); HEMOGLOBIN 9.4 g/dl (12.0-16.0); LYMPHOCYTES # (AUTO) 2.2 X10'3 (1.1-4.8); LYMPHOCYTES % (AUTO) 14.8 % (21-51); MEAN CORPUSCULAR HEMOGLOBIN 28.5 PG (27.0-31.0); MEAN CORPUSCULAR HGB CONC 33.8 g/dL (33.0-36.5); MEAN CORPUSCULAR VOLUME 84.5 FL (78-98); MEAN PLATELET VOLUME 7.8 FL (7.4-10.4); MONOCYTES # (AUTO) 1.9 X10'3 (0-0.9); MONOCYTES % (AUTO) 12.8 % (2-12); NEUTROPHILS % (AUTO) 70.3 % (42-75); PLATELET COUNT 642 X10'3 (140-440); RED BLOOD COUNT 3.29 X10'6 (4.20-5.60); RED CELL DISTRIBUTION WIDTH 14.4 % (11.5-14.5)
[2019-08-07 06:25] LABS: ALBUMIN 2.1 G/DL (3.4-5.0); ANION GAP 8 (8-16); BLOOD UREA NITROGEN 10 MG/DL (7-18); BUN/CREATININE RATIO 13.5 (6.6-38.0); CALCIUM 8.1 MG/DL (8.5-10.1); CHLORIDE 99 MMOL/L (99-107); CREATININE 0.74 MG/DL (0.40-0.90); GLUCOSE 146 MG/DL (70-104); POTASSIUM 4.2 MMOL/L (3.5-5.1); SODIUM 135 MMOL/L (135-145); TOTAL CARBON DIOXIDE 27.9 MMOL/L (24-32); eGFR 80 ML/MIN
--- NOTE | 2019-08-07 06:38 | NUR ---
Problems reprioritized. Patient report given, questions answered & plan of care reviewed with livan christian.
--- NOTE | 2019-08-07 06:50 | NUR ---
Patient in room ORTHO 4014. I have received report from Yanira RN and Cleveland RN and had the opportunity to ask questions and assume patient care.
[2019-08-07] MEDS: lactobacillus rhamnosus 10,000 MMU CELLS/CAPSULE PO SCH ×2 (07:52→20:05)
[2019-08-07] MEDS: enoxaparin 40mg/0.4ml syringe SUBCUT SCH (07:52)
[2019-08-07] MEDS: nystatin 15 GM powder TP SCH ×2 (07:58→13:09)
[2019-08-07] MEDS: insulin Lispro (HumaLOG) vial - multi-dose SQ SCH ×3 (09:52→20:05)
[2019-08-07 10:00] VITALS: BP 124/75
[2019-08-07 13:54] VITALS: BP 107/57
--- NOTE | 2019-08-07 17:45 | NUR ---
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 Uncontrolled DM, A1c of 13.9; Patient seen at bedside and given written DM education handout with verbal review and referral to outpatient DM education class on Friday. Also given written high protein education handout with verbal review. Patient endorses a good appetite, has missing teeth and c/o some chewing difficulties and agrees to soft to chew, chopped foods d/w dietary. Patient reports she "goes with the flow" with medication prescriptions and at one point had Lantus for DM management but no other DM medications, does not see a doctor, history of homelessness, does not have glucometer. She became tearful when discussing her DM management and states she cannot do a lot for herself and needs help, vp digital marketing social media and crm is following this patient and addressing her problems. PO intake 75-100% of carb controlled diet. LBM 08/06. Will continue to follow. Rec: 1. continue carb controlled diet 2. soft to chew foods, chop all 3. routine bowel care 5. weight per rx Addendum: 08/07/19 at [address] Amended: Links added.
[2019-08-07 18:00] VITALS: BP 105/60
--- NOTE | 2019-08-07 18:04 | NUR ---
Problems reprioritized. Patient report given, questions answered & plan of care reviewed with Priscilla ESTRADA.
[2019-08-07 22:00] VITALS: BP 108/52
[2019-08-08] MEDS: HYDROmorphone/NS 1 mg/ml CADD 50 ML IV SCH ×11 (01:00→23:00)
[2019-08-08] MEDS: insulin glargine (Lantus) pen - multi-dose SQ SCH ×2 (01:31→21:55)
[2019-08-08] MEDS: piperacillin/tazo 4.5gm/100ml 100 ML IV SCH ×3 (01:39→16:50)
[2019-08-08] MEDS: nystatin 15 GM powder TP SCH ×4 (01:39→22:09)
[2019-08-08 06:00] VITALS: BP 128/70
[2019-08-08 06:25] LABS: BASOPHILS # (AUTO) 0.1 X10'3 (0-0.2); EOSINOPHILS # (AUTO) 0.3 X10'3 (0-0.9); EOSINOPHILS % (AUTO) 1.9 % (0-6); HEMATOCRIT 26.9 % (35.0-45.0); HEMOGLOBIN 9.3 g/dl (12.0-16.0); LYMPHOCYTES # (AUTO) 2.2 X10'3 (1.1-4.8); LYMPHOCYTES % (AUTO) 15.6 % (21-51); MEAN CORPUSCULAR HEMOGLOBIN 29.4 PG (27.0-31.0); MEAN CORPUSCULAR HGB CONC 34.6 g/dL (33.0-36.5); MEAN CORPUSCULAR VOLUME 84.8 FL (78-98); MEAN PLATELET VOLUME 7.8 FL (7.4-10.4); MONOCYTES # (AUTO) 1.7 X10'3 (0-0.9); MONOCYTES % (AUTO) 11.9 % (2-12); NEUTROPHILS # (AUTO) 9.9 X10'3 (1.8-7.7); NEUTROPHILS % (AUTO) 69.6 % (42-75); PLATELET COUNT 626 X10'3 (140-440); RED BLOOD COUNT 3.17 X10'6 (4.20-5.60); RED CELL DISTRIBUTION WIDTH 14.9 % (11.5-14.5); WHITE BLOOD COUNT 14.3 X10'3 (4.5-11.0)
--- NOTE | 2019-08-08 06:38 | NUR ---
Problems reprioritized. Patient report given, questions answered & plan of care reviewed with KATELYN ESTRADA.
[2019-08-08 06:46] LABS: ALBUMIN 2.1 G/DL (3.4-5.0); ANION GAP 8 (8-16); BLOOD UREA NITROGEN 6 MG/DL (7-18); BUN/CREATININE RATIO 8.7 (6.6-38.0); CALCIUM 8.2 MG/DL (8.5-10.1); CHLORIDE 100 MMOL/L (99-107); CREATININE 0.69 MG/DL (0.40-0.90); GLUCOSE 125 MG/DL (70-104); POTASSIUM 4.3 MMOL/L (3.5-5.1); SODIUM 136 MMOL/L (135-145); TOTAL CARBON DIOXIDE 27.6 MMOL/L (24-32); eGFR 86 ML/MIN
[2019-08-08] MEDS: lactobacillus rhamnosus 10,000 MMU CELLS/CAPSULE PO SCH ×2 (08:00→19:18)
[2019-08-08] MEDS: acetaminophen 325mg tablet PO PRN ×2 (08:00→16:52)
[2019-08-08] MEDS: enoxaparin 40mg/0.4ml syringe SUBCUT SCH (08:01)
[2019-08-08] MEDS: insulin Lispro (HumaLOG) vial - multi-dose SQ SCH ×3 (08:40→19:31)
[2019-08-08] MEDS ORDERED: ipratropium/albuterol 3ml nebule NEB PRN (09:00)
[2019-08-08 09:16] VITALS: BP 104/56
[2019-08-08] MEDS ORDERED: hydrOXYzine 25 MG tablet PO PRN (12:25)
[2019-08-08] MEDS: gabapentin 300mg capsule PO SCH (16:00)
[2019-08-08 18:00] VITALS: BP 120/75
--- NOTE | 2019-08-08 18:27 | NUR ---
Report to Priscilla ESTRADA
--- NOTE | 2019-08-08 20:19 | NUR ---
ONDINA'D VERBAL REPORT AND ASSUMED CARE OF PATIENT AT 1830 FROM KATELYN ESTRADA
[2019-08-08 22:00] VITALS: BP 109/62
[2019-08-09] MEDS: piperacillin/tazo 4.5gm/100ml 100 ML IV SCH ×2 (00:52→07:20)
[2019-08-09] MEDS: HYDROmorphone/NS 1 mg/ml CADD 50 ML IV SCH ×12 (00:54→23:00)
[2019-08-09 06:00] VITALS: BP 122/61
--- NOTE | 2019-08-09 07:00 | NUR ---
REPORT TO KATELYN ESTRADA
[2019-08-09] MEDS: acetaminophen 325mg tablet PO PRN ×2 (07:19→14:57)
[2019-08-09] MEDS: lactobacillus rhamnosus 10,000 MMU CELLS/CAPSULE PO SCH ×2 (07:20→19:42)
[2019-08-09] MEDS: enoxaparin 40mg/0.4ml syringe SUBCUT SCH (07:32)
[2019-08-09] MEDS: nystatin 15 GM powder TP SCH ×3 (07:33→21:03)
[2019-08-09] MEDS: gabapentin 300mg capsule PO SCH ×3 (07:33→16:00)
[2019-08-09] MEDS: insulin Lispro (HumaLOG) vial - multi-dose SQ SCH ×3 (08:59→19:37)
[2019-08-09 10:00] VITALS: BP 97/45
[2019-08-09 18:00] VITALS: BP 116/57
--- NOTE | 2019-08-09 18:49 | NUR ---
Report to October RN
[2019-08-09] MEDS: acetaminophen 325mg tablet PO SCH (19:42)
[2019-08-09] MEDS: insulin glargine (Lantus) pen - multi-dose SQ SCH (21:13)
[2019-08-09 22:00] VITALS: BP 115/61
[2019-08-10] MEDS: gabapentin 300mg capsule PO SCH ×4 (00:41→23:30)
[2019-08-10] MEDS: HYDROmorphone/NS 1 mg/ml CADD 50 ML IV SCH ×8 (01:00→14:45)
[2019-08-10] MEDS: acetaminophen 325mg tablet PO SCH ×3 (02:23→14:45)
[2019-08-10 06:00] VITALS: BP 98/53
[2019-08-10 06:07] LABS: BASOPHILS # (AUTO) 0.1 X10'3 (0-0.2); BASOPHILS % (AUTO) 0.8 % (0-1); EOSINOPHILS # (AUTO) 0.3 X10'3 (0-0.9); LYMPHOCYTES # (AUTO) 2.5 X10'3 (1.1-4.8); MONOCYTES # (AUTO) 1.2 X10'3 (0-0.9)
[2019-08-10 06:09] LABS: EOSINOPHILS % (AUTO) 2.6 % (0-6); HEMATOCRIT 25.3 % (35.0-45.0); HEMOGLOBIN 8.6 g/dl (12.0-16.0); LYMPHOCYTES % (AUTO) 22.9 % (21-51); MEAN CORPUSCULAR HEMOGLOBIN 28.9 PG (27.0-31.0); MEAN CORPUSCULAR VOLUME 85.1 FL (78-98); MEAN PLATELET VOLUME 7.7 FL (7.4-10.4); MONOCYTES % (AUTO) 10.6 % (2-12); NEUTROPHILS # (AUTO) 6.9 X10'3 (1.8-7.7); NEUTROPHILS % (AUTO) 63.1 % (42-75); PLATELET COUNT 678 X10'3 (140-440); RED BLOOD COUNT 2.97 X10'6 (4.20-5.60); RED CELL DISTRIBUTION WIDTH 14.7 % (11.5-14.5)
[2019-08-10 06:20] LABS: ALANINE AMINOTRANSFERASE 42 U/L (12-78); ALBUMIN/GLOBULIN RATIO 0.4 (1.1-1.5); ALKALINE PHOSPHATASE 195 IU/L (46-116); ANION GAP 5 (8-16); ASPARTATE AMINO TRANSFERASE 27 U/L (10-37); BILIRUBIN,TOTAL 0.1 MG/DL (0.1-1.0); BLOOD UREA NITROGEN 12 MG/DL (7-18); BUN/CREATININE RATIO 14.1 (6.6-38.0); CALCIUM 8.1 MG/DL (8.5-10.1); CHLORIDE 103 MMOL/L (99-107); CREATININE 0.85 MG/DL (0.40-0.90); GLUCOSE 161 MG/DL (70-104); POTASSIUM 4.3 MMOL/L (3.5-5.1); SODIUM 136 MMOL/L (135-145); TOTAL CARBON DIOXIDE 27.7 MMOL/L (24-32); TOTAL PROTEIN 6.7 G/DL (6.4-8.2); eGFR 68 ML/MIN
[2019-08-10] MEDS: nystatin 15 GM powder TP SCH ×3 (08:00→21:00)
[2019-08-10] MEDS: lactobacillus rhamnosus 10,000 MMU CELLS/CAPSULE PO SCH ×2 (08:23→19:17)
[2019-08-10] MEDS: enoxaparin 40mg/0.4ml syringe SUBCUT SCH (08:25)
[2019-08-10 10:00] VITALS: BP 129/77
--- NOTE | 2019-08-10 13:15 | NUR ---
Reassessment: Pt PO 75-100% avg meals improving PO meeting healing needs s/p [place] GARCIA LBM 08/09. Will continue to monitor for additional protein needs post-op. Rec: 1. continue carb controlled diet 2. soft to chew foods, chop all 3. routine bowel care 5. weight per rx Addendum: 08/10/19 at [address] Amended: Links added.
[2019-08-10] MEDS: insulin Lispro (HumaLOG) vial - multi-dose SQ SCH ×2 (13:31→19:16)
[2019-08-10] MEDS ORDERED: HYDROmorphone inj. 0.5 MG/0.5 ML DISP.SYRIN IV PRN (15:00)
[2019-08-10 18:00] VITALS: BP 117/68
[2019-08-10] MEDS: HYDROcodone/acetaminophen 10/325mg tab PO PRN ×2 (19:17→23:34)
[2019-08-10] MEDS: insulin glargine (Lantus) pen - multi-dose SQ SCH (20:56)
[2019-08-10 22:00] VITALS: BP 118/64
[2019-08-11] MEDS: HYDROcodone/acetaminophen 10/325mg tab PO PRN ×3 (05:48→19:27)
[2019-08-11 06:20] LABS: BASOPHILS # (AUTO) 0.1 X10'3 (0-0.2); LYMPHOCYTES # (AUTO) 2.7 X10'3 (1.1-4.8); MEAN CORPUSCULAR VOLUME 85.6 FL (78-98); NEUTROPHILS # (AUTO) 5.7 X10'3 (1.8-7.7); RED CELL DISTRIBUTION WIDTH 15.1 % (11.5-14.5); WHITE BLOOD COUNT 9.8 X10'3 (4.5-11.0)
[2019-08-11 06:23] LABS: EOSINOPHILS # (AUTO) 0.3 X10'3 (0-0.9); EOSINOPHILS % (AUTO) 2.7 % (0-6); HEMOGLOBIN 9.2 g/dl (12.0-16.0); LYMPHOCYTES % (AUTO) 27.9 % (21-51); MEAN CORPUSCULAR HEMOGLOBIN 29.1 PG (27.0-31.0); MEAN CORPUSCULAR HGB CONC 33.9 g/dL (33.0-36.5); MEAN PLATELET VOLUME 7.4 FL (7.4-10.4); NEUTROPHILS % (AUTO) 58.4 % (42-75); PLATELET COUNT 763 X10'3 (140-440); RED BLOOD COUNT 3.15 X10'6 (4.20-5.60)
--- NOTE | 2019-08-11 06:37 | NUR ---
Report given to Dominique ESTRADA.
[2019-08-11 06:57] LABS: ALANINE AMINOTRANSFERASE 40 U/L (12-78); ALBUMIN 2.2 G/DL (3.4-5.0); ALBUMIN/GLOBULIN RATIO 0.4 (1.1-1.5); ALKALINE PHOSPHATASE 181 IU/L (46-116); ANION GAP 8 (8-16); ASPARTATE AMINO TRANSFERASE 31 U/L (10-37); BILIRUBIN,TOTAL 0.2 MG/DL (0.1-1.0); BLOOD UREA NITROGEN 16 MG/DL (7-18); BUN/CREATININE RATIO 23.9 (6.6-38.0); CALCIUM 8.4 MG/DL (8.5-10.1); CHLORIDE 104 MMOL/L (99-107); CREATININE 0.67 MG/DL (0.40-0.90); GLUCOSE 96 MG/DL (70-104); POTASSIUM 3.9 MMOL/L (3.5-5.1); SODIUM 138 MMOL/L (135-145); TOTAL PROTEIN 7.2 G/DL (6.4-8.2); eGFR 89 ML/MIN
--- NOTE | 2019-08-11 06:58 | NUR ---
Patient in room ORTHO 4014A. I have received report from NATALIE CHEN and had the opportunity to ask questions and assume patient care.
[2019-08-11] MEDS: gabapentin 300mg capsule PO SCH ×2 (08:00→16:49)
[2019-08-11] MEDS: lactobacillus rhamnosus 10,000 MMU CELLS/CAPSULE PO SCH ×2 (08:41→19:27)
[2019-08-11] MEDS: enoxaparin 40mg/0.4ml syringe SUBCUT SCH (08:43)
[2019-08-11] MEDS: nystatin 15 GM powder TP SCH ×3 (08:43→19:27)
[2019-08-11] MEDS: HYDROmorphone 1 mg/ml syringe IV PRN (08:44)
[2019-08-11 10:00] VITALS: BP 85/68
[2019-08-11] MEDS: insulin Lispro (HumaLOG) vial - multi-dose SQ SCH ×3 (10:49→19:00)
[2019-08-11 18:00] VITALS: BP 131/57
--- NOTE | 2019-08-11 18:00 | NUR ---
Patient in room ORTHO 4014. I have received report from NATALIE Fox and had the opportunity to ask questions and assume patient care. Addendum: 08/11/19 at 1847 by Sara Springer RN Amended: Links added.
--- NOTE | 2019-08-11 18:23 | NUR ---
Problems reprioritized. Patient report given, questions answered & plan of care reviewed with NATALIE BHATT.
[2019-08-11] MEDS: insulin glargine (Lantus) pen - multi-dose SQ SCH (21:08)
[2019-08-11 22:00] VITALS: BP 113/56
[2019-08-12] MEDS: gabapentin 300mg capsule PO SCH ×2 (00:10→07:22)
[2019-08-12] MEDS: HYDROcodone/acetaminophen 10/325mg tab PO PRN ×3 (00:11→12:40)
[2019-08-12] MEDS: ondansetron/PF 4mg/2ml inj IV PRN (00:21)
[2019-08-12] MEDS: HYDROmorphone 1 mg/ml syringe IV PRN (02:58)
[2019-08-12 06:56] VITALS: BP 111/50
[2019-08-12] MEDS: lactobacillus rhamnosus 10,000 MMU CELLS/CAPSULE PO SCH (07:22)
[2019-08-12 07:24] LABS: BASOPHILS # (AUTO) 0.1 X10'3 (0-0.2); BASOPHILS % (AUTO) 1.2 % (0-1); EOSINOPHILS # (AUTO) 0.3 X10'3 (0-0.9); HEMOGLOBIN 9.3 g/dl (12.0-16.0); MEAN PLATELET VOLUME 7.6 FL (7.4-10.4)
[2019-08-12] MEDS: nystatin 15 GM powder TP SCH ×2 (07:26→12:43)
[2019-08-12 07:27] LABS: EOSINOPHILS % (AUTO) 3.6 % (0-6); HEMATOCRIT 27.4 % (35.0-45.0); LYMPHOCYTES # (AUTO) 2.2 X10'3 (1.1-4.8); LYMPHOCYTES % (AUTO) 25.2 % (21-51); MEAN CORPUSCULAR HEMOGLOBIN 28.7 PG (27.0-31.0); MEAN CORPUSCULAR HGB CONC 33.8 g/dL (33.0-36.5); MONOCYTES # (AUTO) 0.8 X10'3 (0-0.9); MONOCYTES % (AUTO) 9.3 % (2-12); NEUTROPHILS # (AUTO) 5.2 X10'3 (1.8-7.7); NEUTROPHILS % (AUTO) 60.7 % (42-75); PLATELET COUNT 733 X10'3 (140-440); RED BLOOD COUNT 3.23 X10'6 (4.20-5.60); RED CELL DISTRIBUTION WIDTH 15.4 % (11.5-14.5); WHITE BLOOD COUNT 8.6 X10'3 (4.5-11.0)
[2019-08-12 07:29] LABS: ALANINE AMINOTRANSFERASE 34 U/L (12-78); ALBUMIN 2.2 G/DL (3.4-5.0); ALBUMIN/GLOBULIN RATIO 0.5 (1.1-1.5); ALKALINE PHOSPHATASE 183 IU/L (46-116); ANION GAP 6 (8-16); ASPARTATE AMINO TRANSFERASE 23 U/L (10-37); BILIRUBIN,TOTAL 0.1 MG/DL (0.1-1.0); BLOOD UREA NITROGEN 22 MG/DL (7-18); BUN/CREATININE RATIO 28.2 (6.6-38.0); CALCIUM 8.3 MG/DL (8.5-10.1); CHLORIDE 103 MMOL/L (99-107); CREATININE 0.78 MG/DL (0.40-0.90); GLUCOSE 225 MG/DL (70-104); POTASSIUM 4.4 MMOL/L (3.5-5.1); SODIUM 136 MMOL/L (135-145); TOTAL PROTEIN 6.9 G/DL (6.4-8.2); eGFR 75 ML/MIN
[2019-08-12] MEDS: enoxaparin 40mg/0.4ml syringe SUBCUT SCH (07:46)
[2019-08-12] MEDS: insulin Lispro (HumaLOG) vial - multi-dose SQ SCH ×2 (09:05→14:15)
[2019-08-12 10:53] LABS: LARGE PLATELETS FEW; PLATELET ESTIMATE INCREASED
--- NOTE | 2019-08-12 12:03 | NUR ---
Reassessment: Pt PO PO 100% avg meals continued meeting healing needs. LBM 08/11. No nutrition concerns at this time. Will continue to monitor. Rec: 1. continue carb controlled diet 2. soft to chew foods, chop all 3. routine bowel care 4. weight per rx Addendum: 08/12/19 at [address] Amended: Links added.
--- NOTE | 2019-08-12 12:26 | NUR ---
PAGER ID: [phone] MESSAGE: YULY [phone]-RE: KARLEE GIRON [phone]...CAN I GET DC ORDERS, PTS RIDE WILL BE HERE AT 1400..THANK YOU
[2019-08-12] MEDS ORDERED: GABA300C PO (12:35)
[2019-08-12] MEDS ORDERED: HYDR-4353 PO (12:35)
[2019-08-12] MEDS ORDERED: LANTUS SQ (12:36)
--- NOTE | 2019-08-12 16:00 | NUR ---
PT DC IN STABLE CONDITION
== END 2019-08-12 16:20 | disposition home or self-care (01) | DRG 305 ==
LOC: ER 11:06 → SUR 3N 19:25 → ORTHO 4S 08-05 11:58
PROVIDERS: ADMIT Internal Medicine; ATTEND Family Medicine
PROC: 0Y6J0Z2 Detachment at Left Lower Leg, Mid, Open Approach (ICD-10-PCS; principal; 2019-08-05)
PROC: 0HXNXZZ Transfer Left Foot Skin, External Approach (ICD-10-PCS; 2019-08-06)
PROC: 0JBR0ZZ Excision of Left Foot Subcutaneous Tissue and Fascia, Open Approach (ICD-10-PCS; 2019-08-06)
DX: E11.52 Type 2 diabetes mellitus with diabetic peripheral angiopathy with gangrene (principal); E43 Unspecified severe protein-calorie malnutrition; I96 Gangrene, not elsewhere classified; E11.621 Type 2 diabetes mellitus with foot ulcer; D62 Acute posthemorrhagic anemia; E11.65 Type 2 diabetes mellitus with hyperglycemia; D63.8 Anemia in other chronic diseases classified elsewhere; E11.628 Type 2 diabetes mellitus with other skin complications; E87.1 Hypo-osmolality and hyponatremia; F15.90 Other stimulant use, unspecified, uncomplicated; F17.210 Nicotine dependence, cigarettes, uncomplicated; L97.509 Non-pressure chronic ulcer of other part of unspecified foot with unspecified severity; Z86.73 Personal history of transient ischemic attack (TIA), and cerebral infarction without residual deficits; Z88.8 Allergy status to other drugs, medicaments and biological substances; Z91.041 Radiographic dye allergy status; Z83.3 Family history of diabetes mellitus; Z68.27 Body mass index [BMI] 27.0-27.9, adult; Z59.0 Homelessness; Z79.4 Long term (current) use of insulin; Z91.19 Patient's noncompliance with other medical treatment and regimen
CPT/HCPCS: 36415; 73630; 80048; 80053; 81001; 82948; 83036; 83605; 83735; 85025; 86885; 86900; 86901; 87040; 87081; 93005; 93922; 93926; 94667; 94668; 94760; 96365; 96368; 96375; 97110; 97112; 97161; 97530; 99291; A4618; A6222; A6446; A6449; A6455; A7000; C9399; G0378; J1170; J1650; J1815; J2001; J2175; J2250; J2270; J2405; J2543; J2704; J2795; J3010; J3370; J7120; P9045

== ENCOUNTER 2019-12-25 03:51 | Inpatient (IN) | payer MEDICAID ==
[2019-12-25] VITALS: BP 120/73
[~2019-12-25] VITALS: Ht 170.2 cm; Wt 65.9 kg
[~2019-12-25 03:51] MED LIST changes: +GABA300C PO; -HYDR-3964 PO; +HYDR-4353 PO; -LANTUS SQ
[2019-12-25] MEDS ORDERED: insulin regular, human 10 units/0.1 ml syringe SQ ONE ×2 (04:25→05:35)
[2019-12-25] MEDS ORDERED: ondansetron/PF 4mg/2ml inj IV ONE (04:25)
[2019-12-25] MEDS ORDERED: morphine 4 MG/ML inj SYRINge IV PRN (04:25)
[2019-12-25] MEDS ORDERED: normal saline 1000ML IV soln IVB ONE ×3 (04:25→07:10)
[2019-12-25] MEDS ORDERED: insulin regular, human U-100 3ml vial - multi-dose SQ ONE (04:30)
[2019-12-25 04:34] LABS: BASOPHILS # (AUTO) 0.1 X10'3 (0-0.2); BASOPHILS % (AUTO) 0.4 % (0-1); EOSINOPHILS # (AUTO) 0.1 X10'3 (0-0.9); EOSINOPHILS % (AUTO) 0.3 % (0-6); HEMATOCRIT 37.3 % (35.0-45.0); HEMOGLOBIN 12.2 g/dl (12.0-16.0); LYMPHOCYTES % (AUTO) 5.7 % (21-51); MEAN CORPUSCULAR HEMOGLOBIN 26.2 PG (27.0-31.0); MEAN CORPUSCULAR HGB CONC 32.8 g/dL (33.0-36.5); MEAN CORPUSCULAR VOLUME 79.9 FL (78-98); MEAN PLATELET VOLUME 8.5 FL (7.4-10.4); MONOCYTES # (AUTO) 1.2 X10'3 (0-0.9); MONOCYTES % (AUTO) 7.2 % (2-12); NEUTROPHILS # (AUTO) 14.9 X10'3 (1.8-7.7); NEUTROPHILS % (AUTO) 86.4 % (42-75); PLATELET COUNT 428 X10'3 (140-440); RED BLOOD COUNT 4.67 X10'6 (4.20-5.60); RED CELL DISTRIBUTION WIDTH 16.2 % (11.5-14.5); WHITE BLOOD COUNT 17.2 X10'3 (4.5-11.0)
[2019-12-25 04:45] LABS: ALANINE AMINOTRANSFERASE 16 U/L (12-78); ALBUMIN 2.5 G/DL (3.4-5.0); ALBUMIN/GLOBULIN RATIO 0.5 (1.1-1.5); ALKALINE PHOSPHATASE 172 IU/L (46-116); ANION GAP 7 (8-16); ASPARTATE AMINO TRANSFERASE 15 U/L (10-37); BILIRUBIN,TOTAL 0.6 MG/DL (0.1-1.0); BLOOD UREA NITROGEN 11 MG/DL (7-18); BUN/CREATININE RATIO 10.4 (6.6-38.0); CHLORIDE 93 MMOL/L (99-107); CREATININE 1.06 MG/DL (0.40-0.90); LIPASE 87 U/L (73-393); POTASSIUM 5.2 MMOL/L (3.5-5.1); SODIUM 127 MMOL/L (135-145); TOTAL CARBON DIOXIDE 27.1 MMOL/L (24-32); TOTAL PROTEIN 7.5 G/DL (6.4-8.2); eGFR 53 ML/MIN
[2019-12-25 04:47] LABS: GLUCOSE 465 MG/DL (70-104)
[2019-12-25] MEDS ORDERED: CefTRIAXone 2gm/D5W 50ml 50 ML IV ONE (05:10)
[2019-12-25 05:34] LABS: CLARITY,URINE SLIGHTLY CLOUDY (Clear); COLOR,URINE YELLOW (Yellow); GLUCOSE, URINE >=1000 mg/dl (Neg); KETONES,URINE TRACE mg/dl (Neg); LEUKOCYTE ESTERASE ,URINE NEGATIVE (Neg); NITRITES, URINE POSITIVE (Neg); OCCULT BLOOD,URINE LARGE (Neg); PROTEIN,URINE TRACE mg/dl (Neg); UROBILINOGEN,URINE 0.2 E.U/dL (0.2-1.0)
[2019-12-25] MEDS ORDERED: insulin regular, human U-100 3ml vial - multi-dose IV ONE (05:35)
[2019-12-25 05:40] LABS: UA COLLECTION TYPE CLN CATCH MIDSTREAM
[2019-12-25 05:43] LABS: BACTERIA,URINE 4+ /HPF (Neg); SQUAMOUS EPITHELIAL CELL,UR MODERATE /LPF (FEW); WBC CLUMPS,URINE FEW /HPF (NEGATIVE); YEAST FEW /HPF (NEGATIVE)
[2019-12-25] MEDS ORDERED: LANTUS SQ (06:18)
--- NOTE | 2019-12-25 06:53 | NUR ---
Pt gave permission for Brittney Niño, Mike Wilson, and Davidson Jane to get information about her stay and care. They are her roommates. They can be reached at [phone].
[2019-12-25 07:11] LABS: HEMOGLOBIN A1C 13.4 % (4.5-6.2)
[2019-12-25] MEDS ORDERED: magnesium hydroxide 30ml (MOM) UD suspension PO PRN (07:25)
[2019-12-25] MEDS ORDERED: ondansetron/PF 4mg/2ml inj IV PRN (07:25)
[2019-12-25] MEDS ORDERED: glucagon, human recombinant 1mg kit SUBCUT PRN (07:25)
[2019-12-25] MEDS ORDERED: mag hydrox/Alum hydrox/simeth 30ml oral suspension PO PRN (07:25)
[2019-12-25] MEDS ORDERED: dextrose 50%-water 50ml dispensing syringe IV PRN ×2 (07:25)
[2019-12-25] MEDS ORDERED: acetaminophen 325mg tablet PO PRN ×2 (07:25)
[2019-12-25] MEDS ORDERED: HYDROcodone/acetaminophen 5mg/325mg tablet PO PRN (07:25)
[2019-12-25] MEDS ORDERED: MESSAGE TO PHARMACY PO ONE (07:25)
[2019-12-25] MEDS ORDERED: dextrose ORAL solution 15 GM/59 ML bottle PO PRN ×2 (07:25)
--- NOTE | 2019-12-25 07:57 | NUR ---
Pt hollering out, asked her what was going on. She states, "I have some kind of cramp or something on my left leg". This RN asked if she had rubbed it or anything. Pt states, "No, I need alcohol to rub it with, that is what works". Let pt know that we do not have that in the hospital. Offered to get her lotion to rub on it, pt refused.
[2019-12-25] MEDS: enoxaparin 40mg/0.4ml syringe SUBCUT SCH (08:14)
--- NOTE | 2019-12-25 08:48 | NUR ---
Pt sleeping. Respirations unlabored. NAD
[2019-12-25 09:57] VITALS: BP 138/74
[2019-12-25] MEDS: HYDROmorphone 1 mg/ml syringe IV PRN (11:11)
--- NOTE | 2019-12-25 13:51 | NUR ---
Paged Dr. Saenz regarding CT scan abdomen/pelvis result
[2019-12-25] MEDS: piperacillin/tazo 4.5gm/100ml 100 ML IV SCH (16:32)
[2019-12-25] MEDS: HYDROmorphone inj. 0.5 MG/0.5 ML DISP.SYRIN IV PRN (16:43)
--- NOTE | 2019-12-25 17:47 | NUR ---
Paged Dr. Saenz to report positive blood culture. PAGER ID: [phone] MESSAGE: Surgical Flr Mal RN ext [phone]. RE: Charlotte Torres. Received a phone call from lab reported positive blood culture: anaerobic bottle has (+) gram negative nick taken from right forearm. Zosyn was already started today
[2019-12-25 18:00] VITALS: BP 95/50
--- NOTE | 2019-12-25 18:35 | NUR ---
Problems reprioritized. Patient report given, questions answered & plan of care reviewed with Benjamin ESTRADA.
[2019-12-25] MEDS: insulin Lispro (HumaLOG) vial - multi-dose SQ SCH ×2 (19:14→21:17)
[2019-12-25] MEDS: insulin glargine (Lantus) pen - multi-dose SQ SCH (21:19)
[2019-12-25] MEDS: HYDROcodone/acetaminophen 10/325mg tab PO PRN (23:14)
[2019-12-26] VITALS: BP 105/59
[2019-12-26] MEDS: piperacillin/tazo 4.5gm/100ml 100 ML IV SCH ×3 (00:13→16:19)
[2019-12-26 05:15] LABS: BASOPHILS # (AUTO) 0.1 X10'3 (0-0.2); BASOPHILS % (AUTO) 0.7 % (0-1); EOSINOPHILS # (AUTO) 0.1 X10'3 (0-0.9); EOSINOPHILS % (AUTO) 0.9 % (0-6); HEMATOCRIT 33.2 % (35.0-45.0); HEMOGLOBIN 11.1 g/dl (12.0-16.0); LYMPHOCYTES % (AUTO) 7.8 % (21-51); MEAN CORPUSCULAR HGB CONC 33.4 g/dL (33.0-36.5); MEAN CORPUSCULAR VOLUME 80.9 FL (78-98); MEAN PLATELET VOLUME 8.8 FL (7.4-10.4); MONOCYTES # (AUTO) 0.5 X10'3 (0-0.9); MONOCYTES % (AUTO) 3.8 % (2-12); NEUTROPHILS % (AUTO) 86.8 % (42-75); PLATELET COUNT 381 X10'3 (140-440); RED BLOOD COUNT 4.11 X10'6 (4.20-5.60); WHITE BLOOD COUNT 12.6 X10'3 (4.5-11.0)
[2019-12-26 05:20] LABS: ALBUMIN 2.1 G/DL (3.4-5.0); ANION GAP 8 (8-16); BLOOD UREA NITROGEN 18 MG/DL (7-18); CALCIUM 8.1 MG/DL (8.5-10.1); CHLORIDE 95 MMOL/L (99-107); GLUCOSE 273 MG/DL (70-104); POTASSIUM 3.4 MMOL/L (3.5-5.1); SODIUM 128 MMOL/L (135-145); TOTAL CARBON DIOXIDE 25.5 MMOL/L (24-32); eGFR 56 ML/MIN
--- NOTE | 2019-12-26 06:21 | NUR ---
Patient in room AFIA 350. I have received report from Benjamin ESTRADA and had the opportunity to ask questions and assume patient care.
[2019-12-26] MEDS: HYDROcodone/acetaminophen 10/325mg tab PO PRN (06:25)
[2019-12-26] MEDS: enoxaparin 40mg/0.4ml syringe SUBCUT SCH (08:25)
[2019-12-26] MEDS: insulin Lispro (HumaLOG) vial - multi-dose SQ SCH ×3 (08:31→19:31)
[2019-12-26 08:40] VITALS: BP 140/79
[2019-12-26] MEDS ORDERED: potassium Cl 20 mEq SR tablet PO ONE (10:00)
[2019-12-26 11:00] VITALS: BP 90/50
--- NOTE | 2019-12-26 14:36 | NUR ---
Paged Dr. Saenz PAGER ID: [phone] MESSAGE: Surgical Flr Mal ESTRADA ext [phone]. RE: Charlotte Torres. Urine culture has gram negative nick and presumptive geovanny albicans. Do you want her to be on Difflucan Addendum: 12/26/19 at 1453 by Mal Jimenez RN Dr. Saenz acknowledged that he received my page message about geovanny albicans in the urine. No new order made
--- NOTE | 2019-12-26 15:41 | NUR ---
PAGER ID: [phone] MESSAGE: Surgical Flr Mal SETRADA ext [phone]. RE: Charlotte Torres. Received a call from the lab reporting positive MRSA swab nares. Olivier MCCLELLAND Addendum: 12/26/19 at 1548 by Mal Jimenez RN Paged Dr. Saenz
--- NOTE | 2019-12-26 15:46 | NUR ---
Patient notified about positive MRSA swab in the nares.
--- NOTE | 2019-12-26 17:36 | NUR ---
DM Consult: A1C 13.4; previously 13.9 July this year. Pt admit w/ acute pyelonephritis reports taking DM meds when has them per EMR. Prior admit July hx homeless w/ no glucometer or and Matti as only DM med. Would benefit from DM ed this admit. Addendum: 12/26/19 at [address] Amended: Links added.
--- NOTE | 2019-12-26 18:36 | NUR ---
Problems reprioritized. Patient report given, questions answered & plan of care reviewed with Pat RN.
[2019-12-26] MEDS: lactobacillus rhamnosus 10,000 MMU CELLS/CAPSULE PO SCH (19:34)
[2019-12-26] MEDS: HYDROmorphone 1 mg/ml syringe IV PRN (19:43)
[2019-12-26 20:00] VITALS: BP 129/66
[2019-12-26] MEDS: insulin glargine (Lantus) pen - multi-dose SQ SCH (21:36)
[2019-12-27] VITALS: BP 99/61
[2019-12-27] MEDS: HYDROmorphone 1 mg/ml syringe IV PRN (02:37)
[2019-12-27 05:15] LABS: BASOPHILS # (AUTO) 0.1 X10'3 (0-0.2); BASOPHILS % (AUTO) 0.5 % (0-1); EOSINOPHILS # (AUTO) 0.2 X10'3 (0-0.9); EOSINOPHILS % (AUTO) 1.5 % (0-6); HEMATOCRIT 27.5 % (35.0-45.0); HEMOGLOBIN 9.2 g/dl (12.0-16.0); LYMPHOCYTES # (AUTO) 1.7 X10'3 (1.1-4.8); LYMPHOCYTES % (AUTO) 11.4 % (21-51); MEAN CORPUSCULAR HEMOGLOBIN 26.6 PG (27.0-31.0); MEAN CORPUSCULAR HGB CONC 33.3 g/dL (33.0-36.5); MEAN PLATELET VOLUME 8.7 FL (7.4-10.4); MONOCYTES # (AUTO) 1.2 X10'3 (0-0.9); MONOCYTES % (AUTO) 7.7 % (2-12); NEUTROPHILS # (AUTO) 11.9 X10'3 (1.8-7.7); NEUTROPHILS % (AUTO) 78.9 % (42-75); PLATELET COUNT 321 X10'3 (140-440); RED BLOOD COUNT 3.44 X10'6 (4.20-5.60); RED CELL DISTRIBUTION WIDTH 16.4 % (11.5-14.5)
[2019-12-27 05:20] LABS: ALBUMIN 1.6 G/DL (3.4-5.0); ANION GAP 7 (8-16); BLOOD UREA NITROGEN 16 MG/DL (7-18); BUN/CREATININE RATIO 17.4 (6.6-38.0); CALCIUM 7.5 MG/DL (8.5-10.1); CHLORIDE 98 MMOL/L (99-107); CREATININE 0.92 MG/DL (0.40-0.90); GLUCOSE 230 MG/DL (70-104); POTASSIUM 4.1 MMOL/L (3.5-5.1); SODIUM 129 MMOL/L (135-145); TOTAL CARBON DIOXIDE 24.4 MMOL/L (24-32); eGFR 62 ML/MIN
[2019-12-27 07:19] VITALS: BP 103/70
[2019-12-27] MEDS: lactobacillus rhamnosus 10,000 MMU CELLS/CAPSULE PO SCH (07:36)
[2019-12-27] MEDS: HYDROcodone/acetaminophen 10/325mg tab PO PRN (07:38)
[2019-12-27] MEDS: enoxaparin 40mg/0.4ml syringe SUBCUT SCH (07:39)
[2019-12-27] MEDS: piperacillin/tazo 4.5gm/100ml 100 ML IV SCH ×2 (07:43)
[2019-12-27] MEDS ORDERED: LANTUS SQ (09:19)
[2019-12-27] MEDS ORDERED: HYDR-4383 PO (09:19)
[2019-12-27] MEDS ORDERED: LEVO500T2 PO ×2 (09:19→11:48)
[2019-12-27] MEDS: insulin Lispro (HumaLOG) vial - multi-dose SQ SCH ×2 (09:28→14:16)
[2019-12-27] MEDS: HYDROmorphone inj. 0.5 MG/0.5 ML DISP.SYRIN IV PRN (10:57)
--- NOTE | 2019-12-27 13:46 | NUR ---
DM Consult: A1C 13.4; previously 13.9 July this year. Patient seen at bedside and given written DM education handout, patient reports she lost her glucometer when moved to [place], says she ran out of lantus and does not have PCP. States she will take lantus when she has it. D/w bedside RN, patient now has prescription for lantus and CM attempting to have pt set up with [facility] for PCP. RD encouraged pt to take DM medication as prescribed and follow up with PCP. Addendum: 12/27/19 at [address] Amended: Links added.
--- NOTE | 2019-12-27 15:00 | NUR ---
DC INSTRUCTIONS GIVEN QUESTIONS ANSWERED. ASSISTED PT WITH DRESSING AND GATHERING BELONGINGS. IV WAS REMOVED, CANULA INTACT NO COMPLICATIONS. HAND WRITTEN RX WAS GIVEN TO PT. 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
--- NOTE | 2019-12-29 13:37 | NUR ---
Patients family member Shwetha [phone] called regarding they have not been able to meat pickler Lantus. I have paged Dr Saenz the discharge MD. PAGER ID: [phone] MESSAGE: Tamra [phone] Re: Brian who was discharged 2 days ago pharmacy has questions re: script please call Addendum: 12/29/19 at 1435 by Jing Joshi RN Called In RX to [place] the pharmacist at [address] Levaquin 500mg PO daily for 12 days #12 no refills. Basaglar Insulin pen 15 units Sub q HS with pen needle attachment. Shwetha was called back and notified pharmacy has been called.
== END 2019-12-27 15:02 | disposition home or self-care (01) | DRG 720 ==
LOC: ER 03:52 → ED HOLD 07:21 → SUR 3N 09:42
PROVIDERS: ADMIT Internal Medicine; ATTEND Internal Medicine
DX: A41.59 Other Gram-negative sepsis (principal); E43 Unspecified severe protein-calorie malnutrition; E11.65 Type 2 diabetes mellitus with hyperglycemia; B96.1 Klebsiella pneumoniae [K. pneumoniae] as the cause of diseases classified elsewhere; E87.1 Hypo-osmolality and hyponatremia; E87.5 Hyperkalemia; F15.90 Other stimulant use, unspecified, uncomplicated; F17.210 Nicotine dependence, cigarettes, uncomplicated; F12.90 Cannabis use, unspecified, uncomplicated; K59.00 Constipation, unspecified; N10 Acute pyelonephritis; Z79.4 Long term (current) use of insulin; Z89.512 Acquired absence of left leg below knee; Z91.19 Patient's noncompliance with other medical treatment and regimen; Z88.5 Allergy status to narcotic agent; Z98.51 Tubal ligation status; Z68.22 Body mass index [BMI] 22.0-22.9, adult
CPT/HCPCS: 36415; 74176; 80048; 80053; 81001; 82948; 83036; 83605; 83690; 83880; 84145; 85025; 87040; 87077; 87081; 87088; 87186; 99285; G0378; J0696; J1170; J1650; J1815; J2270; J2405; J2543; J7030

== ENCOUNTER 2022-07-14 02:07 | Emergency (ER) | payer MEDICAID ==
[~2022-07-14] VITALS: Ht 152.4 cm; Wt 71.0 kg
[~2022-07-14 02:07] MED LIST changes: -GABA300C PO; -HYDR-4353 PO; +HYDR-4383 PO; +LANTUS SQ
--- NOTE | 2022-07-14 02:46 | NUR ---
Attempted to notify all family members in demographic data and Dell Torres [phone], no answer on any phone number Notified [facility]
--- NOTE | 2022-07-14 02:56 | NUR ---
[facility] reference number [id number]
--- NOTE | 2022-07-14 03:05 | NUR ---
SAMIRA RDG NOTIFIED
== END 2022-07-14 04:53 ==
LOC: ER 02:07
DX: I46.9 Cardiac arrest, cause unspecified (principal); E11.9 Type 2 diabetes mellitus without complications; F12.90 Cannabis use, unspecified, uncomplicated; F15.20 Other stimulant dependence, uncomplicated; Z88.6 Allergy status to analgesic agent
CPT/HCPCS: 31500; 92950; 94760; 99285